=== PATIENT | female | born 1970 | race Caucasian/White ===

== ENCOUNTER → 2016-12-22 | Outpatient (CLI) | payer MEDICARE, OTHER ==
--- NOTE | 2016-12-22 09:25 | CT ---
EXAMINATION TYPE: CT brain wo con DATE OF EXAM: 12/22/2016 8:39 AM COMPARISON: NONE HISTORY: 46-year-old female with left temporal headache for 3 weeks. TECHNIQUE: Examination was done in axial plane without intravenous contrast. Coronal and sagittal reconstructio ns performed. CT DLP: 1061 mGycm Automated exposure control for dose reduction was used. FINDINGS: There is no evidence of acute intracranial hemorrhage, acute ischemic changes, mass, mass-effect, or extra-axial fluid collection. There is no effacement of cerebral sulci or basal subarachnoid cister ns. There is no hydrocephalus. There is no midline shift. Marquez-white matter distinction is preserv ed. The patient's gaze is minimally divergent. Paranasal sinuses and mastoid air cells are well pneumatiz ed. IMPRESSION: 1. No acute intracranial abnormality seen. 2. Slightly divergent gaze. Correlate for a subtle underlying strabismus.
--- NOTE | 2016-12-22 10:51 | USB ---
Reason for exam: clinical finding. Indicated problem(s): pain in both breasts. Physical Findings: Nurse Summary: Patient complains of intermittent breast pain x 1 year (nurse mm). US Breast BILAT Right breast ultrasound including all four quadrants, the retroareolar region and axilla demonstrates a 0.4 x 0.4 x 0.5cm oval, cystic lesion at 1 o'clock and a 0.4 x 0.3 x 0.3cm oval, cystic cluster at 7 o'clock. Left breast ultrasound including all four quadrants, the retroareolar region and axilla demonstrates a 0.5 x 0.3 x 0.4cm oval, cystic lesion at 1 o'clock and a 0.4 x 0.3 x 0.4cm oval, cystic lesion at 1 o'clock. These results were verbally communicated with the patient and result sheet given to the patient on 12/22/16. ASSESSMENT: Incomplete: need additional imaging evaluation, BI-RAD 0 RECOMMENDATION: Follow-up diagnostic mammogram of both breasts.
--- NOTE | 2016-12-22 10:53 | MM ---
Reason for exam: clinical finding. Baseline mammogram. Indicated problem(s): pain in both breasts. MG 3D Diag Mammo W/Cad NADINE Bilateral CC and MLO view(s) were taken. The breast tissue is heterogeneously dense. This may lower the sensitivity of mammography. No significant new findings when compared with previous films. These results were verbally communicated with the patient and result sheet given to the patient on 12/22/16. ASSESSMENT: Benign, BI-RAD 2 RECOMMENDATION: Routine screening mammogram of both breasts in 1 year.
== END | disposition home or self-care (01) ==
LOC: RADCTMAIN 08:21
PROVIDERS: ATTEND Family Medicine
DX: R92.8 Other abnormal and inconclusive findings on diagnostic imaging of breast (principal); R51 Headache; N64.4 Mastodynia
CPT/HCPCS: 76641; 70450; G0204; G0279

== ENCOUNTER → 2017-01-29 | Outpatient (CLI) | payer MEDICARE, OTHER ==
--- NOTE | 2017-01-29 12:10 | XR ---
EXAMINATION TYPE: XR shoulder complete LT DATE OF EXAM: 01/29/2017 12:01 PM CLINICAL HISTORY: pain COMPARISON: NONE TECHNIQUE: Three views of the left shoulder are obtained. FINDINGS: There is no acute fracture/dislocation evident. The acromioclavicular and glenohumeral xander int spaces appear within normal limits. The visualized ribs are intact and unremarkable. IMPRESSION: 1. There is no acute fracture or dislocation. ICD 10 NO FRACTURE, INITIAL EVALUATION
--- NOTE | 2017-01-29 12:11 | XR ---
EXAMINATION TYPE: XR cervical spine comp DATE OF EXAM: 01/29/2017 12:01 PM CLINICAL HISTORY: pain COMPARISON: NONE TECHNIQUE: Frontal, lateral, oblique, swimmers, and open mouth view of the cervical spine are obtaine d. FINDINGS: The cervical spine is visualized in its entirety from C1 thru the top of T1 level. It is s atisfactory in alignment without evidence of acute fracture or dislocation. The pre-vertebral soft t issue appears within normal limits. Mild degenerative narrowing at C6-7. The C1-C2 articulation is un remarkable on the open mouth view. The oblique images are within normal limits. IMPRESSION: No acute fracture or dislocation is seen in the cervical spine.ICD 10 NO FRACTURE, INITI AL EVALUATION
--- NOTE | 2017-01-29 12:12 | XR ---
EXAMINATION TYPE: XR lumbosacral spine min 4V DATE OF EXAM: 01/29/2017 12:01 PM CLINICAL HISTORY: pain COMPARISON: NONE TECHNIQUE: Frontal, lateral, and oblique images of the lumbar spine are obtained. FINDINGS: There are 5 lumbar type vertebral bodies identified. The lumbar spine shows satisfactory alignment without evidence of acute fracture or dislocation. Vertebral body heights are within normal limits. Mild lower lumbar degenerative narrowing and spondylosis. Mild facet joint arthropathy. Th e overlying soft tissue appears unremarkable. IMPRESSION: No acute fracture or dislocation is seen in the lumbar spine.ICD 10 NO FRACTURE, INITIAL EVALUATION
--- NOTE | 2017-01-29 12:13 | XR ---
EXAMINATION TYPE: XR AC joint BILAT DATE OF EXAM: 01/29/2017 12:01 PM COMPARISON: NONE HISTORY: Shoulder pain TECHNIQUE: Evaluation of the AC joints bilaterally was performed with and without weights. FINDINGS: AC joints are intact and demonstrate stability with and without weights. No significant deg enerative narrowing. No bony lesion or fracture. IMPRESSION: Negative evaluation of the AC joints
== END | disposition home or self-care (01) ==
LOC: RADXRMAIN 11:02
PROVIDERS: ATTEND Family Medicine
DX: M54.2 Cervicalgia (principal); M54.5 Low back pain; M25.512 Pain in left shoulder
CPT/HCPCS: 72050; 72110; 73050; 85379

== ENCOUNTER → 2017-06-15 | Outpatient (CLI) | payer BC, MEDICARE ==
--- NOTE | 2017-06-15 14:01 | NM ---
EXAMINATION TYPE: NM bone scan whole body DATE OF EXAM: 06/15/2017 COMPARISON: NONE HISTORY: Low back pain Delayed whole-body scanning was performed following the injection of 25.9 mCi Tc 99m MDP. Images acq uired 3 hours post injection. FINDINGS: There is some mild increased activity in the left forefoot as well as in the region of the medial malleolus on the right. There is some increased activity in the right maxilla. No abnormal act ivity is seen within the spine. SPECT imaging is unremarkable. IMPRESSION: NO ABNORMAL SPINE ACTIVITY TO ACCOUNT FOR PATIENT'S PAIN.
== END | disposition home or self-care (01) ==
LOC: RADNMMAIN 10:10
PROVIDERS: ATTEND Internal Medicine Rheumatology
DX: M54.2 Cervicalgia (principal); M54.5 Low back pain; G89.29 Other chronic pain
CPT/HCPCS: 78306; 78320; A9503

== ENCOUNTER → 2018-03-01 | Outpatient (CLI) | payer BC, MEDICARE | END | disposition home or self-care (01) | LOC: RADUSWWP 14:07 | PROVIDERS: ATTEND Family Medicine | DX: I73.9 Peripheral vascular disease, unspecified (principal) | CPT/HCPCS: 93922 ==

== ENCOUNTER → 2018-06-13 | Outpatient (CLI) | payer BC, MEDICARE ==
--- NOTE | 2018-06-13 17:09 | XR ---
EXAMINATION TYPE: XR foot complete LT DATE OF EXAM: 06/13/2018 COMPARISON: NONE HISTORY: Left foot pain TECHNIQUE: 3 views FINDINGS: Metatarsals appear intact. I see no fracture nor dislocation. Joint spaces are fairly barbara l. There are no erosions. IMPRESSION: Negative exam. No evidence of inflammatory arthritis.
== END | disposition home or self-care (01) ==
LOC: RADXRMAIN 16:31
PROVIDERS: ATTEND Family Medicine
DX: M79.672 Pain in left foot (principal)

== ENCOUNTER → 2018-06-24 | Outpatient (CLI) | payer BC, MEDICARE ==
--- NOTE | 2018-06-24 23:58 | MR ---
EXAMINATION TYPE: MR cervical spine wo con DATE OF EXAM: 06/24/2018 COMPARISON: None HISTORY: Neck pain / bilateral arm pain x6 months TECHNIQUE: Multiplanar, multisequence images of the cervical spine were acquired. Cervical vertebra have normal alignment. The disc spaces are slightly narrowed at C5-6 C6-7. There ar e small posterior disc bulges at C5-6 C6-7 without significant impingement on the cervical spinal cor d. There is developmentally adequate canal. The canal measures 8 mm at C5-6. The brainstem is intact. Cervical spinal cord has normal signal pattern. There is no edema. There is no compression fracture. There are small posterior disc bulge also at C3-4. There is no paraspinal mass. I see no focal bone destruction. IMPRESSION: Mild spondylotic changes. Multiple levels of small posterior disc bulge and herniation. No significan t spinal stenosis. No fracture.
--- NOTE | 2018-06-25 00:02 | MR ---
EXAMINATION TYPE: MR lumbar spine wo/w con DATE OF EXAM: 06/24/2018 COMPARISON: HISTORY: Low back and leg pain, previous surgery, gadavist 7.5 TECHNIQUE: Multiplanar, multisequence images of the lumbar spine were acquired utilizing 7.5 mL intravenous Gada vist gadolinium contrast. The lumbar vertebra have normal alignment. Disc spaces are fairly normal. There is no compression fra cture. Lumbar nerve roots appear normal. There is a small posterior central and left side lumbar disc herniation at L2-3 and L3-4. There is slight impingement on the left-sided neural foramina at L2-3 L 3-4. I see no bony destructive process. There is no paraspinal mass. The posterior elements are intac t. IMPRESSION: Small lateral left side disc herniation at L2-3 and L3-4 with only minimal impingement on the neural foramen. No fracture. No spinal stenosis.
== END | disposition home or self-care (01) ==
LOC: RADMRIMAIN 15:45
PROVIDERS: ATTEND Family Medicine
DX: M50.11 Cervical disc disorder with radiculopathy, high cervical region (principal); M51.26 Other intervertebral disc displacement, lumbar region; M47.22 Other spondylosis with radiculopathy, cervical region
CPT/HCPCS: 82565; 72141; 72158; A9581

== ENCOUNTER → 2018-07-12 | Outpatient (CLI) | payer BC, MEDICARE ==
--- NOTE | 2018-07-12 16:12 | MR ---
EXAMINATION TYPE: MR thoracic spine wo con DATE OF EXAM: 07/12/2018 COMPARISON: 02/05/2016 HISTORY: Mid back pain x 2 months, previous MRI on PACS 01/2016 Standard multiplanar, multisequence MRI departmental protocol Multiplanar, multisequence images of the thoracic spine were acquired. Diffusion weighted imaging was performed. FINDINGS: On the localizer images there are multilevel at least disc bulges within the cervical spine at C3-C4, C4-C5, C5-C6 and C6-C7. These are incompletely evaluated and cervical spine MRI could be performed f or further evaluation. The thoracic vertebral bodies maintain normal vertebral body heights and alignment. There is no suspi cious extra-axial fluid collection seen. Thoracic spinal cord also maintains normal signal throughout . Bone marrow signal is within normal limits. There is no evidence of spinal canal stenosis or neural foraminal narrowing at any thoracic vertebral level. No suspicious osseous lesions are seen. Paraspinal muscles are symmetric and within normal li mits of signal. No significant atrophy. There is no evidence of focal disc herniation at any thoracic vertebral level. IMPRESSION: 1. Unchanged from the prior exam of 02/05/2016 there is no evidence of focal disc herniation, spinal ca nal stenosis or neural foraminal narrowing at any thoracic vertebral level. No abnormal bone marrow s ignal or vertebral body height loss. No malalignment. 2. Multilevel degenerative disc disease in the cervical spine as seen on the localizer images only.
== END | disposition home or self-care (01) ==
LOC: RADMRIMAIN 15:12
PROVIDERS: ATTEND Family Medicine
DX: M51.36 Other intervertebral disc degeneration, lumbar region (principal); R20.2 Paresthesia of skin
CPT/HCPCS: 72146

== ENCOUNTER → 2019-01-04 | Outpatient (CLI) | payer BC, MEDICARE ==
--- NOTE | 2019-01-04 09:44 | MM ---
Reason for exam: additional evaluation requested from prior study. Last mammogram was performed 2 years ago. History: Family history of breast cancer in sister at age 45. Physical Findings: Nurse did not find any significant physical abnormalities on exam. MG 3D Diag Mammo W/Cad NADINE Bilateral CC and MLO view(s) were taken. Prior study comparison: December 22, 2016, bilateral MG 3d diag mammo w/cad NADINE. The breast tissue is heterogeneously dense. This may lower the sensitivity of mammography. There is no discrete abnormality including area of concern. No significant new findings when compared with previous films. These results were verbally communicated with the patient and result sheet given to the patient on 01/04/19. ASSESSMENT: Incomplete: need additional imaging evaluation, BI-RAD 0 RECOMMENDATION: Ultrasound of the right breast.
--- NOTE | 2019-01-04 09:45 | USB ---
Reason for exam: additional evaluation requested from abnormal screening. History: Family history of breast cancer in sister at age 45. US Breast Axilla RT Right limited breast ultrasound including focal area of concern, retroareolar and axilla demonstrates a 0.5 x 0.3 x 0.5cm mixed lesion at the posterior nipple. These results were verbally communicated with the patient and result sheet given to the patient on 01/04/19. ASSESSMENT: Probably benign, BI-RAD 3 RECOMMENDATION: Ultrasound of the right breast in 6 months. Manage patient on a clinical basis.
== END | disposition home or self-care (01) ==
LOC: RADMAMWWP 08:43
PROVIDERS: ATTEND Family Medicine
DX: R92.8 Other abnormal and inconclusive findings on diagnostic imaging of breast (principal); R59.0 Localized enlarged lymph nodes
CPT/HCPCS: 77062; 77066

== ENCOUNTER → 2019-07-05 | Outpatient (CLI) | payer MEDICARE ==
--- NOTE | 2019-07-06 07:00 | XR ---
EXAMINATION TYPE: XR lumbosacral spine min 4V DATE OF EXAM: 07/05/2019 CLINICAL HISTORY: Low back pain. MRI lumbar spine June 24, 2018 lumbar spine x-ray January 29, 2017. TECHNIQUE: Frontal, lateral, and oblique images of the lumbar spine are obtained. COMPARISON: None FINDINGS: There are 5 lumbar type vertebral bodies redemonstrated. The lumbar spine shows persisten t grade 1 retrolisthesis L4 on L5. Vertebral body heights remain within normal limits. Mild disc spa ce narrowing L3-L4 level is redemonstrated. Interval laminectomy defects with spinous process resecti on involving L3-L5 vertebra. Facet arthropathy lower lumbar levels is redemonstrated. The oblique asia ges appear within normal limits. Vascular calcification overlying abdominal aorta is again seen exten ding into the iliac branch vessels. IMPRESSION: As above.
--- NOTE | 2019-07-06 07:01 | XR ---
EXAMINATION TYPE: XR Hip Bilateral Complete DATE OF EXAM: 07/05/2019 CLINICAL HISTORY: Bilateral hip pain TECHNIQUE: AP and frogleg views of the bilateral hips are obtained. COMPARISON: None. FINDINGS: There is no acute fracture/dislocation evident in either hip. The joint space in the bila teral hips appears within normal limits. No suspicious focal osseous lesions. No significant spurring . Some scattered pelvic phleboliths are noted bilaterally. IMPRESSION: Unremarkable study.
== END | disposition home or self-care (01) ==
LOC: RADXRMAIN 16:43
PROVIDERS: ATTEND Family Medicine
DX: M48.061 Spinal stenosis, lumbar region without neurogenic claudication (principal); M46.96 Unspecified inflammatory spondylopathy, lumbar region; I70.8 Atherosclerosis of other arteries
CPT/HCPCS: 72110; 73521

== ENCOUNTER → 2019-09-06 | Outpatient (CLI) | payer MEDICARE ==
--- NOTE | 2019-09-06 15:19 | MR ---
EXAMINATION TYPE: MR neck wo/w con DATE OF EXAM: 09/06/2019 COMPARISON: None HISTORY: Hypothyroidism / Enlarged thyroid, lump in throat x 3 months CONTRAST: Standard multiplanar, multisequence MRI departmental protocol of the neck prior to and after the admi nistration of 9 mL intravenous Gadavist gadolinium contrast. FINDINGS: Postsurgical changes are seen from anterior cervical fusion at C5, C6, and C7. This creates susceptibility artifact limiting evaluation of the adjacent stranding structures. Disc desiccation i s seen of the remainder of the cervical spine with small right paracentral disc herniation at C3-C4 s lightly narrowing the ventral subarachnoid space and right neuroforamen. No current significant spina l canal stenosis. There is slight heterogeneity of the thyroid gland and mild enlargement as the thyroid gland measures 1.9 cm in anterior posterior dimension on the right and 1.8 cm in anterior posterior dimension on th e left. Thyroid gland measures 4.7 cm in craniocaudal dimension on the right and 4.1 cm in craniocaud al dimension on the left (dimensions are slightly enlarged). Thyroid isthmus measures 5 mm. There is some artifact throughout the thyroid gland from the adjacent cervical fusion device. No suspicious en hancing masses seen in the thyroid. True and false focal cords appear overall unremarkable. Vallecula also appears unremarkable. Piriform sinuses are not well visualized. Mild tonsillar hypertrophy is symmetric bilaterally. Fossa of [place] miller are unremarkable. 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 This is markedly T2 hyperintense and T2 weighted fat sat axia l image 34. Minimal atelectasis is seen in the lung apices. Suboptimal evaluation for pulmonary nodule on MRI. No adenopathy is seen within the visualized neck. Major vascular flow voids of the neck are maintained. Submandibular glands and parotid glands are symmetric and unremarkable. IMPRESSION: 1. Mildly enlarged and heterogenous thyroid gland is in keeping with this patient's history of hypoth yroidism. No suspicious masses seen on MRI. Slight artifact is seen through the thyroid from the cristian cent anterior cervical fusion device posterior to the thyroid gland. Resolution is best on thyroid ul trasound for evaluation of thyroid nodules. 2. 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 Given the slight peripheral enhancement (likely r elated to an inflammatory component). Direct visualization is recommended. 3. No abnormal adenopathy in the neck. 4. Small right paracentral disc herniation at C3-C4 without significant spinal canal stenosis at this time.
== END | disposition home or self-care (01) ==
LOC: RADMRIMAIN 12:36
PROVIDERS: ATTEND Family Medicine
DX: E03.9 Hypothyroidism, unspecified (principal); E04.1 Nontoxic single thyroid nodule; M50.21 Other cervical disc displacement, high cervical region; Z98.1 Arthrodesis status
CPT/HCPCS: 70543; A9585

== ENCOUNTER → 2020-05-22 | Outpatient (CLI) | payer BC, MEDICARE ==
--- NOTE | 2020-05-22 17:00 | MR ---
EXAMINATION TYPE: MR lumbar spine wo/w con DATE OF EXAM: 05/22/2020 COMPARISON: 06/24/2018 HISTORY: 50-year-old female Lumbar radiculopathy Technique: Multiplanar, multisequence images of the lumbar spine were obtained before and after admin istration of 9.5 mL intravenous Gadavist gadolinium contrast. FINDINGS: Vertebral body heights are preserved. There is grade 1 retrolisthesis at L4-L5 is unchanged. Hypertrophic facet arthropathy lower lumbar spine. Interval laminectomy at L4-L5 levels with dorsal decompression of the spinal canal. Mild degenerative disc disease throughout with mild disc desiccation. Variable mild disc height loss especially at L2-L3 and L3-L4. New enhancing annular fissures at both L2-L3 and L3-L4. Component of mild congenital spinal canal stenosis in the upper lumbar spine with AP canal dimension of 1.1 cm. No suspicious bone marrow replacement. Conus medullaris is normal. No prevertebral or paravertebral soft tissue abnormality seen. At T12-L1, no canal or foraminal stenosis. At L1-L2, no significant canal or foraminal stenosis. At L2-L3, mild bulging disc with posterior annular fissure. There is mild bilateral neuroforaminal st enosis demonstrated. Mild congenital canal narrowing is slightly accentuated by the bulging disc. No significant spinal canal stenosis. At L3-L4, bulging disc with enhancing annular fissure. Hypertrophic facet arthropathy. Dorsal decompr ession of the spinal canal at this level. Mild bilateral neural foraminal stenosis. At L4-L5, hypertrophic facet arthropathy with trace grade 1 retrolisthesis. Changes result in moderat e to severe right and moderate left neuroforaminal stenosis. Dorsal decompression of the spinal canal at this level. At L5-S1, hypertrophic facet arthropathy. No significant canal or foraminal stenosis. No abnormal enhancement seen within the spinal canal. IMPRESSION: 1. Mild congenital spinal canal narrowing but with interval laminectomies and dorsal decompression of the spinal canal from L3 through L5 levels. 2. Mild degenerative disc disease with development of new enhancing posterior annular fissures at L2- L3 and L3-L4. Slight accentuation of the mild congenital spinal canal narrowing at L2-L3 from disc bu lge. No significant spinal canal stenosis seen. 3. Hypertrophic facet arthropathy mid to lower lumbar spine. Unchanged trace grade 1 retrolisthesis a t L4-L5. 4. Changes contribute to moderate to severe right and moderate left neuroforaminal stenosis at L4-L5. Similar mild bilateral neuroforaminal narrowing at L2-L3 and L3-L4.
== END | disposition home or self-care (01) ==
LOC: RADMRIMAIN 13:39
PROVIDERS: ATTEND Family Medicine
DX: M48.061 Spinal stenosis, lumbar region without neurogenic claudication (principal); M51.16 Intervertebral disc disorders with radiculopathy, lumbar region; M47.26 Other spondylosis with radiculopathy, lumbar region; Q05.7 Lumbar spina bifida without hydrocephalus; Z98.890 Other specified postprocedural states
CPT/HCPCS: 72158; A9585

== ENCOUNTER → 2020-07-01 | Outpatient (CLI) | payer BC, MEDICARE ==
--- NOTE | 2020-07-02 06:10 | MR ---
EXAMINATION TYPE: MR thoracic spine wo con DATE OF EXAM: 07/01/2020 COMPARISON: Prior MRI thoracic spine July 12, 2018. HISTORY: Neck pain, Matteo arm numbness TECHNIQUE: Multiplanar, multisequence imaging of thoracic spine is performed without contrast FINDINGS: There is new artifact from anterior fusion hardware C5-C7 levels on the sagittal T2 countin g series . Spinal cord redemonstrates normal course, caliber, and signal as it courses the thoracic spine. Vertebral body heights and alignment remain satisfactory. Bone marrow signal intensity is pr eserved. Mild multilevel anterior spurring mid to lower thoracic spine redemonstrated. Disc space hei ghts are maintained. No new suspicious disc herniation seen on sagittal images. Review of the axial images shows no significant new spinal canal stenosis or neural foraminal narrowi ng at any thoracic level. Artifact from anterior surgical hardware now present at C7-T1 level. Carlin bon muscle bulk is maintained. No suspicious new incidental finding in the visualized thorax or upp er abdomen. IMPRESSION: No significant change from prior MRI. No new focal disc herniation, spinal canal stenosi s, or new significant neural foraminal narrowing at any thoracic vertebral body level.
--- NOTE | 2020-07-02 06:15 | MR ---
MRI CERVICAL SPINE: CLINICAL HISTORY: Neck pain. Bilateral arm numbness. TECHNIQUE: Multiplanar, multisequence imaging of the cervical spine is performed without and with IV contrast, 9.5 cc of gadolinium was given intravenously. COMPARISON: MRI cervical spine June 24, 2018. FINDINGS: Sagittal images of the cervical spine show the craniocervical junction to remaining within normal limits. The cervical and upper thoracic spinal cord remains normal in course, caliber, and si gnal. New artifact from artificial disc material and anterior fusion plate C5-C7 levels. Satisfactory alignment noted. The vertebral body and intravertebral disk heights are normal above and below the s urgical levels. The bone marrow signal intensity is within normal limits. No suspicious postcontrast enhancement is seen. Axial images show the C2-C3 level to remain within normal limits. Axial images at C3-C4 level redemonstrated broad-based posterior disc protrusion mildly effacing ante rior thecal sac and causing mild asymmetric left-sided neural foraminal narrowing. No significant bk nge or progression from prior. Axial images at C4-C5 level shows mild broad-based posterior disc protrusion and uncovertebral facet degenerative changes bilaterally. Mild effacement of the anterior thecal sac with mild bilateral neur al foraminal narrowing. Findings more prominent or new from prior. Axial images at C5-C6 levels artifact from surgical change with uncovertebral facet degenerative dykes ges causing moderate bilateral neural foraminal narrowing similar to prior. Axial images at C6-C7 level show artifact from surgical change with perhaps mild to moderate bilatera l neural foraminal narrowing. Axial images at C7-T1 level show artifact from surgical change otherwise are felt within normal limit s. IMPRESSION: Interval surgery C5-C7 levels with satisfactory alignment. Stable degenerative changes C3 -C4 level. New or more prominent degenerative changes C4-C5 level.
== END | disposition home or self-care (01) ==
LOC: RADMRIMAIN 15:00
PROVIDERS: ATTEND Family Medicine
DX: M47.892 Other spondylosis, cervical region (principal); M54.16 Radiculopathy, lumbar region
CPT/HCPCS: 72146; 72156; A9585

== ENCOUNTER → 2020-10-02 | Outpatient (CLI) | payer BC, MEDICARE ==
[2020-10-03 03:58] LABS: T4, Free (Free Thyroxine) 1.1 ng/dL (0.80-1.80)
== END | disposition home or self-care (01) ==
LOC: LABWHC1 13:55
PROVIDERS: ATTEND Internal Medicine Endocrinology, Diabetes & Metabolism
DX: E04.2 Nontoxic multinodular goiter (principal)
CPT/HCPCS: 36415; 84439; 84443

== ENCOUNTER → 2020-10-14 | Outpatient (CLI) | payer BC, MEDICARE ==
--- NOTE | 2020-10-14 15:50 | US ---
EXAMINATION TYPE: US thyroid st tissue head/neck DATE OF EXAM: 10/14/2020 COMPARISON: 02/19/2012 CLINICAL HISTORY: E04.2 NONTOXIC MULTINODULAR GOITER. GLAND SIZE: Right Lobe: 5.0 x 1.6 x 1.8 cm Overall Parenchyma: heterogenous Left Lobe: 3.7 x 1.0 x 1.2 cm Overall Parenchyma: heterogeneous Isthmus Thickness: 0.3 cm NODULES RIGHT: # of nodules measured on right: 0 LEFT: # of nodules measured on left: 0 ISTHMUS: # of nodules measured in the isthmus: 0 Inferior to the left thyroid, there is a prominent hyperechoic area visualized measuring 0.5 x 0.5 x 0.8 cm of unknown etiology. IMPRESSION: Thyromegaly correlate for thyroiditis. Nonspecific hypoechoic nodule measuring 8 mm inferior left thy roid could represent a small lymph node or a parathyroid gland. Correlate with CT soft tissue of the neck as clinically warranted.
== END | disposition home or self-care (01) ==
LOC: RADUSWWP 14:46
PROVIDERS: ATTEND Internal Medicine Endocrinology, Diabetes & Metabolism
DX: E01.0 Iodine-deficiency related diffuse (endemic) goiter (principal)
CPT/HCPCS: 76536

== ENCOUNTER → 2020-10-18 | Outpatient (CLI) | payer BC, MEDICARE ==
[2020-10-19 00:03] LABS: African American GFR (CKD) 117.1 (60.0-200.0); Albumin 4.6 g/dL (3.80-4.90); Albumin/Globulin Ratio 2.09 (1.60-3.17); Anion Gap 8.5 mmol/L (4.00-12.00); BUN/Creat Ratio 22.86 Ratio (12.00-20.00); Calcium 9.8 mg/dL (8.7-10.3); Carbon Dioxide 28.5 mmol/L (21.6-31.8); Globulin 2.2 g/dL (1.6-3.3); Total Bilirubin 0.3 mg/dL (0.2-1.2); Total Protein 6.8 g/dL (6.2-8.2)
== END | disposition home or self-care (01) ==
LOC: LABWHC1 15:45
PROVIDERS: ATTEND Internal Medicine Endocrinology, Diabetes & Metabolism
DX: D35.1 Benign neoplasm of parathyroid gland (principal); E55.9 Vitamin D deficiency, unspecified
CPT/HCPCS: 36415; 80053; 82306; 83970

== ENCOUNTER → 2020-10-22 | Day surgery (SDC) | payer BC, MEDICARE ==
[2020-10-21 08:30] VITALS: BMI 34.9
[~2020-10-22] MED LIST: LACTATED RINGERS 1,000 ML IV SCH; LIDOCAINE 1% (10MG/ML) FOR IV START INTRADERMA PRN; PROPOFOL 10 MG/ML 20 ML VIAL IV ONE
[2020-10-22 08:22] VITALS: RESP 18; TEMP 96.9
--- NOTE | 2020-10-22 08:36 | P.GSHP ---
History of Present Illness H&P Date: 10/22/20 Chief Complaint: Rectal bleeding 50-year-old female here today with complaints of symptomatic hemorrhoids. States she had a flareup of her hemorrhoids after starting methotrexate. Symptoms have since resolved. During her episode some rectal bleeding noted. Family history of colon cancer in a grandfather. Past Medical History Past Medical History: Fibromyalgia, Osteoarthritis (OA), Pneumonia, Rheumatoid Arthritis (RA), Thyroid Disorder Additional Past Medical History / Comment(s): NEUROPATHY LEGS, TACHYCARDIA, BACK PAIN, CONSTIPATION. History of Any Multi-Drug Resistant Organisms: None Reported Past Surgical History: Back Surgery, Hernia Repair, Orthopedic Surgery, Tubal Ligation, Uterine Ablation Additional Past Surgical History / Comment(s): BILATERAL KNEE ARTHROSCOPIC SX, UMBILICAL HERNIA REPAIR, LAMINECTOMY X2, REMOVED OVARIAN CYSTS ghazal. left shoulder x2 2017, laminectomy lumber region 2018, cervical fusion 2019 Past Anesthesia/Blood Transfusion Reactions: Family History of Problems w/ Anesthesia, Motion Sickness Additional Past Anesthesia/Blood Transfusion Reaction / Comment(s): MOTHER HAD DIFFICULTY WAKING UP. VERTIGO WHEN LOOKING AT LIGHTS AFTER SURGERY. Past Psychological History: Depression Smoking Status: Former smoker Past Alcohol Use History: Rare Additional Past Alcohol Use History / Comment(s): quit smoking Oct- started smoking at age 16 Past Drug Use History: None Reported - Past Family History Sister(s) Family Medical History: Cancer Additional Family Medical History / Comment(s): breast cancer and melanoma Medications and Allergies Home Medications Medication Instructions Recorded Confirmed Type Nebivolol [Bystolic] 5 mg PO HS 09/27/19 10/22/20 History Acetaminophen Tab [Tylenol] 650 mg PO DIRECTED PRN 10/21/20 10/22/20 History Cyclobenzaprine [Flexeril] 10 mg PO DIRECTED PRN 10/21/20 10/22/20 History Etanercept [Enbrel] 50 mg SQ Q7DAYS 10/21/20 10/22/20 History Ibuprofen [Motrin Ib] 400 mg PO DIRECTED PRN 10/21/20 10/22/20 History Allergies Allergy/AdvReac Type Severity Reaction Status Date / Time latex Allergy Severe Swelling Verified 10/22/20 08:22 Sulfa (Sulfonamide Allergy Rash/Hives Verified 10/22/20 08:22 Antibiotics) Surgical - Exam Vital Signs Temp Pulse Resp BP Pulse Ox 96.9 F L 106 H 18 142/86 95 10/22/20 08:20 10/22/20 08:20 10/22/20 08:20 10/22/20 08:20 10/22/20 08:20 Physical exam: General: Well-developed, well-nourished HEENT: Normocephalic, sclerae nonicteric Abdomen: Nontender, nondistended Extremities: No edema Neuro: Alert and oriented Assessment and Plan (1) Rectal bleeding Narrative/Plan: Will proceed with colonoscopy Current Visit: Yes Status: Acute Code(s): K62.5 - HEMORRHAGE OF ANUS AND RECTUM SNOMED Code(s): 21548865
--- NOTE | 2020-10-22 08:49 | P.PCN ---
Date of Procedure: 10/22/20 Procedure(s) Performed: PREOPERATIVE DIAGNOSIS: Rectal bleeding POSTOPERATIVE DIAGNOSIS: Small rectal polyps, small external hemorrhoid PROCEDURE: Colonoscopy with biopsy ANESTHESIA: MAC SURGEON: Buster Elias M.D. SPECIMENS: Rectal polyps ENDOSCOPIC PROCEDURE: The patient was placed on the endoscopy table in the left decubitus position. The Olympus colonoscope was inserted into the anus and passed under direct visualization to the base of the cecum. The appendiceal orifice was visualized. From that point the scope was slowly withdrawn inspecting all surfaces carefully. There were no neoplastic inflammatory or polypoid lesions throughout the cecum, ascending, transverse, descending and sigmoid colon. In the rectum there were a few small polyps that appeared hyperplastic. 2 of these were removed using the cold biopsy forceps. Digital rectal examination was normal with the exception of a small external hemorrhoid. There was no visible diverticulosis. The patient was taken to the recovery room in stable condition per anesthesia guidelines. RECOMMENDATIONS: Await biopsy results. Anticipate follow-up colonoscopy 10 years.
[2020-10-22 09:11] VITALS: BP 125/91; PULSE 99
== END ==
LOC: ORWHC2ENDO 07:43
PROVIDERS: ATTEND Surgery
DX: K62.1 Rectal polyp (principal); K64.4 Residual hemorrhoidal skin tags; K62.5 Hemorrhage of anus and rectum; M79.7 Fibromyalgia; M19.90 Unspecified osteoarthritis, unspecified site; M06.9 Rheumatoid arthritis, unspecified; E07.9 Disorder of thyroid, unspecified; Z80.0 Family history of malignant neoplasm of digestive organs; G62.9 Polyneuropathy, unspecified; R00.0 Tachycardia, unspecified; K59.00 Constipation, unspecified; Z98.890 Other specified postprocedural states; Z98.51 Tubal ligation status; Z98.1 Arthrodesis status; F32.9 Major depressive disorder, single episode, unspecified; Z87.891 Personal history of nicotine dependence; Z80.3 Family history of malignant neoplasm of breast; Z80.8 Family history of malignant neoplasm of other organs or systems; Z79.1 Long term (current) use of non-steroidal anti-inflammatories (NSAID); Z79.899 Other long term (current) drug therapy; Z88.2 Allergy status to sulfonamides; Z91.040 Latex allergy status
CPT/HCPCS: 81025; 88305; 45380; J2704

== ENCOUNTER → 2020-11-05 | Outpatient (CLI) | payer BC, MEDICARE ==
--- NOTE | 2020-11-05 15:44 | CT ---
EXAMINATION TYPE: CT soft tissue neck wo con DATE OF EXAM: 11/05/2020 HISTORY: abnormal neck US COMPARISON: MRI neck September 06, 2019. Recent thyroid ultrasound October 14, 2020 CT DLP: 661.1 mGycm. Automated Exposure Control for Dose Reduction was Utilized. TECHNIQUE: CT scan of the neck is performed without IV contrast. FINDINGS: Lack of IV contrast noted to Limited evaluation for mucosal lesions and subcentimeter lymph nodes and masses. Airway: Thyroid gland is stable and within normal limits in size. There is no suspicious new mass see n inferior to the left thyroid lobe to correlate with recent ultrasound. No significant change from p rior MRI neck study noted. Parotid/submandibular glands: No gross abnormality seen. Carotid/Vascular Structures: Mild to moderate calcified plaque right greater than left carotid bulb n oted. Osseous Structures: Anterior fusion plate C5-C7 levels with stable alignment redemonstrated Other: A few scattered subcentimeter lymph nodes throughout the neck bilaterally. No definitive new a bnormal greater than 1 cm neck lymph nodes. IMPRESSION: No suspicious new mass or adenopathy.
== END | disposition home or self-care (01) ==
LOC: RADCTMAIN 15:18
PROVIDERS: ATTEND Family Medicine
DX: E04.2 Nontoxic multinodular goiter (principal)
CPT/HCPCS: 70490

== ENCOUNTER 2021-03-06 07:21 | Observation (INO) | payer BC, MEDICARE ==
[2021-03-06] MEDS ORDERED: PANTOPRAZOLE 40 MG/10 ML VIAL IVP STA (07:32)
[2021-03-06] MEDS ORDERED: ONDANSETRON 4 MG/2 ML VIAL IVP STA (07:32)
[2021-03-06] MEDS ORDERED: SODIUM CHLORIDE 0.9% 1,000 ML IV STA (07:32)
[2021-03-06 08:10] LABS: Basophils % (A) 1 %; Eosinophils # (A) 0.2 k/uL (0-0.7); Eosinophils % (A) 2 %; HCT 39.9 % (34.0-46.0); HGB 14.1 gm/dL (11.4-16.0); Lymphocytes # (A) 2.7 k/uL (1.0-4.8); Lymphocytes % (A) 37 %; MCH 30.1 pg (25.0-35.0); MCHC 35.4 g/dL (31.0-37.0); MCV 85.1 fL (80.0-100.0); Mean Platelet Volume 6.8; Monocytes # (A) 0.5 k/uL (0-1.0); Monocytes % (A) 7 %; Neutrophils # (A) 3.7 k/uL (1.3-7.7); Neutrophils % (A) 51 %; Platelet Count 263 k/uL (150-450); RBC 4.69 m/uL (3.80-5.40); RDW 12.1 % (11.5-15.5); WBC 7.3 k/uL (3.8-10.6)
[2021-03-06 08:21] LABS: Appearance,Urine Cloudy (Clear); Bilirubin,Urine Negative (Negative); Blood,Urine Negative (Negative); Color,Urine Yellow; Glucose,Urine (UA) Negative (Negative); Hyaline Casts,Urine 1 /lpf (0-2); Ketones,Urine Negative (Negative); Leukocyte Esterase,Urine Trace (Negative); Mucus,Urine Occasional /hpf; Nitrite,Urine Negative (Negative); PH, Urine 5.5 (5.0-8.0); Protein,Urine Trace (Negative); RBC,Urine <1 /hpf (0-5); Specific Gravity,Urine 1.025 (1.001-1.035); Squamous Epithelial Cell,Urine 28 /hpf (0-4); Urobilinogen,Urine <2.0 mg/dL (<2.0); WBC,Urine 1 /hpf (0-5)
[2021-03-06 08:25] LABS: ALT 34 U/L (4-34); AST 26 U/L (14-36); African American GFR (CKD) >90 (>60 ml/min/1.73 sqM); Albumin 4.2 g/dL (3.5-5.0); Alkaline Phosphatase 97 U/L (38-126); Anion Gap 6 mmol/L; Blood Urea Nitrogen 12 mg/dL (7-17); Calcium 9.3 mg/dL (8.4-10.2); Carbon Dioxide 27 mmol/L (22-30); Chloride 107 mmol/L (98-107); Glucose 119 mg/dL (74-99); Lipase 175 U/L (23-300); Non-African American GFR(CKD) >90 (>60 ml/min/1.73 sqM); Potassium 4.1 mmol/L (3.5-5.1); Sodium 140 mmol/L (137-145); Total Bilirubin 0.3 mg/dL (0.2-1.3); Total Protein 6.9 g/dL (6.3-8.2)
--- NOTE | 2021-03-06 08:45 | ED ---
Abdominal Pain HPI - General Chief Complaint: Abdominal Pain Stated Complaint: Abd Pain Time Seen by Provider: 03/06/21 07:32 Source: patient Mode of arrival: ambulatory Limitations: no limitations - History of Present Illness Initial Comments: 50-year-old female presents to emergency Department with a chief complaint of abdominal pain. States the pain started about 3 days ago in the suprapubic region and has migrated to the right lower quadrant. Patient reports feeling slightly nauseous but no vomiting. They report some nonbloody diarrhea. She reports pain is quite tender to touch. She reports previous abdominal surgery of tubal ligation and hernia repair. She denies any urinary or vaginal symptoms. Denies any chest pain or shortness of breath. Does report chills but no fevers at home. Last time she ate was 7 PM last night. - Related Data Home Medications Medication Instructions Recorded Confirmed Nebivolol [Bystolic] 5 mg PO HS 09/27/19 10/22/20 Acetaminophen Tab [Tylenol] 650 mg PO DIRECTED PRN 10/21/20 10/22/20 Cyclobenzaprine [Flexeril] 10 mg PO DIRECTED PRN 10/21/20 10/22/20 Etanercept [Enbrel] 50 mg SQ Q7DAYS 10/21/20 10/22/20 Ibuprofen [Motrin Ib] 400 mg PO DIRECTED PRN 10/21/20 10/22/20 Allergies Allergy/AdvReac Type Severity Reaction Status Date / Time latex Allergy Severe Swelling Verified 03/06/21 07:22 Sulfa (Sulfonamide Allergy Rash/Hives Verified 03/06/21 07:22 Antibiotics) Review of Systems ROS Statement: Those systems with pertinent positive or pertinent negative responses have been documented in the HPI. ROS Other: All systems not noted in ROS Statement are negative. Past Medical History Past Medical History: Osteoarthritis (OA), Pneumonia, Thyroid Disorder Additional Past Medical History / Comment(s): NEUROPATHY, tachycardia, glucoma History of Any Multi-Drug Resistant Organisms: None Reported Past Surgical History: Back Surgery, Hernia Repair, Orthopedic Surgery, Tubal Ligation, Uterine Ablation Additional Past Surgical History / Comment(s): BILATERAL KNEE ARTHROSCOPIC SX, UMBILICAL HERNIA REPAIR,LUMBAR LAMINECTOMY, REMOVED OVARIAN CYSTS ghazal. left shoulder x2 2017, laminectomy lumber region 2018, cervical fusion 2019 Past Anesthesia/Blood Transfusion Reactions: Family History of Problems w/ Anesthesia Additional Past Anesthesia/Blood Transfusion Reaction / Comment(s): MOTHER HAD DIFFICULTY WAKING UP. Past Psychological History: No Psychological Hx Reported Smoking Status: Former smoker Past Alcohol Use History: Rare Past Drug Use History: None Reported - Past Family History Sister(s) Family Medical History: Cancer Additional Family Medical History / Comment(s): breast cancer and melanoma General Exam Limitations: no limitations General appearance: alert, in no apparent distress, obese Head exam: Present: atraumatic, normocephalic, normal inspection Eye exam: Present: normal appearance, PERRL, EOMI Pupils: Present: normal accommodation ENT exam: Present: normal exam, normal oropharynx, mucous membranes moist Neck exam: Present: normal inspection, full ROM. Absent: tenderness Respiratory exam: Present: normal lung sounds bilaterally. Absent: respiratory distress Cardiovascular Exam: Present: regular rate, normal rhythm, normal heart sounds. Absent: systolic murmur, diastolic murmur GI/Abdominal exam: Present: soft, tenderness (McBurney point tenderness. Patient is quite tender to the right lower quadrant), guarding. Absent: distended Extremities exam: Present: normal inspection, full ROM, normal capillary refill. Absent: tenderness, pedal edema, joint swelling Back exam: Present: normal inspection, full ROM. Absent: tenderness, CVA tenderness (R), CVA tenderness (L) Neurological exam: Present: alert, oriented X3, normal gait Psychiatric exam: Present: normal affect, normal mood Skin exam: Present: warm, dry, intact, normal color Course Vital Signs 03/06/21 07:22 Temperature 97.9 F Pulse Rate 108 H Respiratory 18 Rate Blood Pressure 118/87 O2 Sat by Pulse 98 Oximetry Medical Decision Making - Medical Decision Making 50-year-old female presents emergency Department with a chief complaint of abdominal pain. On physical examination, McBurney point tenderness. CBC CMP UA unremarkable. Lactic acid within normal limits. Blood cultures pending. CT of the abdomen and pelvis reveals early acute appendicitis. Case discussed with Dr gage who will admit patient for medical management. Patient will be started on Zosyn. Case discussed with Dr. Gonsalves. - Lab Data Result diagrams: 03/06/21 07:56 03/06/21 07:56 Lab Results 03/06/21 03/06/21 03/06/21 Range/Units 07:56 07:56 07:56 WBC 7.3 (3.8-10.6) k/uL RBC 4.69 (3.80-5.40) m/uL Hgb 14.1 (11.4-16.0) gm/dL Hct 39.9 (34.0-46.0) % MCV 85.1 (80.0-100.0) fL MCH 30.1 (25.0-35.0) pg MCHC 35.4 (31.0-37.0) g/dL RDW 12.1 (11.5-15.5) % Plt Count 263 (150-450) k/uL MPV 6.8 Neutrophils % 51 % Lymphocytes % 37 % Monocytes % 7 % Eosinophils % 2 % Basophils % 1 % Neutrophils # 3.7 (1.3-7.7) k/uL Lymphocytes # 2.7 (1.0-4.8) k/uL Monocytes # 0.5 (0-1.0) k/uL Eosinophils # 0.2 (0-0.7) k/uL Basophils # 0.0 (0-0.2) k/uL Sodium 140 (137-145) mmol/L Potassium 4.1 (3.5-5.1) mmol/L Chloride 107 (98-107) mmol/L Carbon Dioxide 27 (22-30) mmol/L Anion Gap 6 mmol/L BUN 12 (7-17) mg/dL Creatinine 0.55 (0.52-1.04) mg/dL Est GFR (CKD-EPI)AfAm >90 (>60 ml/min/1.73 sqM) Est GFR (CKD-EPI)NonAf >90 (>60 ml/min/1.73 sqM) Glucose 119 H (74-99) mg/dL Plasma Lactic Acid Pasquale (0.7-2.0) mmol/L Calcium 9.3 (8.4-10.2) mg/dL Total Bilirubin 0.3 (0.2-1.3) mg/dL AST 26 (14-36) U/L ALT 34 (4-34) U/L Alkaline Phosphatase 97 (38-126) U/L Total Protein 6.9 (6.3-8.2) g/dL Albumin 4.2 (3.5-5.0) g/dL Lipase 175 (23-300) U/L Urine Color Yellow Urine Appearance Cloudy H (Clear) Urine pH 5.5 (5.0-8.0) Ur Specific [place] 1.025 (1.001-1.035) Urine Protein Trace H (Negative) Urine Glucose (UA) Negative (Negative) Urine Ketones Negative (Negative) Urine Blood Negative (Negative) Urine Nitrite Negative (Negative) Urine Bilirubin Negative (Negative) Urine Urobilinogen <2.0 (<2.0) mg/dL Ur Leukocyte Esterase Trace H (Negative) Urine RBC <1 (0-5) /hpf Urine WBC 1 (0-5) /hpf Ur Squamous Epith Cells 28 H (0-4) /hpf Hyaline Casts 1 (0-2) /lpf Urine Mucus Occasional H (None) /hpf 03/06/21 Range/Units 07:56 WBC (3.8-10.6) k/uL RBC (3.80-5.40) m/uL Hgb (11.4-16.0) gm/dL Hct (34.0-46.0) % MCV (80.0-100.0) fL MCH (25.0-35.0) pg MCHC (31.0-37.0) g/dL RDW (11.5-15.5) % Plt Count (150-450) k/uL MPV Neutrophils % % Lymphocytes % % Monocytes % % Eosinophils % % Basophils % % Neutrophils # (1.3-7.7) k/uL Lymphocytes # (1.0-4.8) k/uL Monocytes # (0-1.0) k/uL Eosinophils # (0-0.7) k/uL Basophils # (0-0.2) k/uL Sodium (137-145) mmol/L Potassium (3.5-5.1) mmol/L Chloride (98-107) mmol/L Carbon Dioxide (22-30) mmol/L Anion Gap mmol/L BUN (7-17) mg/dL Creatinine (0.52-1.04) mg/dL Est GFR (CKD-EPI)AfAm (>60 ml/min/1.73 sqM) Est GFR (CKD-EPI)NonAf (>60 ml/min/1.73 sqM) Glucose (74-99) mg/dL Plasma Lactic Acid Pasquale 1.2 (0.7-2.0) mmol/L Calcium (8.4-10.2) mg/dL Total Bilirubin (0.2-1.3) mg/dL AST (14-36) U/L ALT (4-34) U/L Alkaline Phosphatase (38-126) U/L Total Protein (6.3-8.2) g/dL Albumin (3.5-5.0) g/dL Lipase (23-300) U/L Urine Color Urine Appearance (Clear) Urine pH (5.0-8.0) Ur Specific [place] (1.001-1.035) Urine Protein (Negative) Urine Glucose (UA) (Negative) Urine Ketones (Negative) Urine Blood (Negative) Urine Nitrite (Negative) Urine Bilirubin (Negative) Urine Urobilinogen (<2.0) mg/dL Ur Leukocyte Esterase (Negative) Urine RBC (0-5) /hpf Urine WBC (0-5) /hpf Ur Squamous Epith Cells (0-4) /hpf Hyaline Casts (0-2) /lpf Urine Mucus (None) /hpf Disposition Clinical Impression: Acute appendicitis Disposition: ADMITTED IP TO THIS [facility] Condition: Good Is patient prescribed a controlled substance at d/c from ED?: No Referrals: Benjamin Darnell DO [Primary Care Provider] - 1-2 days Time of Disposition: 09:26
--- NOTE | 2021-03-06 09:03 | CT ---
EXAMINATION TYPE: CT abdomen pelvis w con DATE OF EXAM: 03/06/2021 COMPARISON: NONE HISTORY: 50-year-old female RLQ abdominal pain TECHNIQUE: Contiguous axial scanning of the abdomen and pelvis following administration of 100 ml Iso rafa 300 IV contrast. Delayed images through the kidneys and coronal/sagittal reconstructions perform ed. CT DLP: 1416.7 mGycm Automated exposure control for dose reduction was used. FINDINGS: Heart normal size without pericardial effusion. Prominent RCA coronary artery calcifications noted. L madelyn bases are clear without pleural effusion. Liver mildly enlarged at 18.8 cm with diffuse low-attenuation. No focal lesion is seen. Portal venous system is patent. No biliary ductal dilatation. Gallbladder, adrenal glands, kidneys, spleen, and pancreas appear within normal limits. Moderate atherosclerotic calcifications infrarenal abdominal aorta and common iliac arteries. No dilated small bowel, free fluid, or free air. A couple prominent but nonenlarged kane hepatis lym ph nodes measuring up to 7 mm. Otherwise, no mesenteric or retroperitoneal lymphadenopathy. Appendix is fluid-filled and mildly thickened up to 9 mm. Some periappendiceal fat stranding extends superiorly, refer to axial images 60 through 70. Mild stool burden. No pericolonic inflammatory hill e seen elsewhere. Tiny focus of air just deep to the skin surface along the left lower quadrant suggests subcutaneous i njections. Bladder nondistended. Uterus anteverted. Both ovaries are visualized. 1.9 cm dominant follicle or fun ctional cyst of the left ovary. Tiny pelvic fluid loops. No abnormal fluid collection in the pelvis o r pelvic lymphadenopathy. Bones: Mild degenerative change of the hips. Mild facet arthropathy lower lumbar spine. Laminectomy c hanges from L3 through L5 levels. Of note, there left-sided L3 pars defect. Trace grade 1 retrolisthe sis L2-L3 and L4-L5. Trace grade 1 anterolisthesis L3-L4. IMPRESSION: 1. EXAM POSITIVE FOR EARLY ACUTE APPENDICITIS. NO ABSCESS OR FREE AIR. 2. WIDE LAMINECTOMIES FROM L3 THROUGH L5 LEVELS. NOTE THAT THERE IS A LEFT-SIDED L3 PARS DEFECT. 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 3. 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
[2021-03-06] MEDS ORDERED: PIPERACILLIN-TAZOBACTAM 3.375 GM in SODIUM CHLORIDE 0.9% 100 ML IVPB STA (09:15)
[2021-03-06] MEDS ORDERED: MORPHINE SULFATE 4 MG/ML SYRINGE IV PRN (09:18)
[2021-03-06] MEDS ORDERED: NALOXONE 0.4 MG/ML 1 ML VIAL IV PRN ×2 (09:18→18:26)
[2021-03-06] MEDS: ONDANSETRON 4 MG/2 ML VIAL IVP PRN ×2 (10:00→19:34)
[2021-03-06] MEDS: HYDROmorphone 0.5 MG/0.5 ML SYRINGE IVP PRN (10:00)
[2021-03-06] MEDS: SODIUM CHLORIDE 0.9% 1,000 ML IV SCH (10:06)
--- NOTE | 2021-03-06 11:56 | P.GSHP ---
<Keyana Barker - Last Filed: 03/06/21 11:41> History of Present Illness H&P Date: 03/06/21 CHIEF COMPLAINT: Abdominal pain HISTORY OF PRESENT ILLNESS: This is a 50-year-old female with a known past medical history of hypothyroidism, tachycardia, rheumatoid arthritis, fibromyalgia and osteoarthritis. Past surgical history includes umbilical hernia repair, tubal ligation and removal of ovarian cysts bilaterally. She's also had a cervical fusion and laminectomy of the lumbar spine. Patient presents to the emergency room with complaints of abdominal pain. Patient states pain started 3 days ago on Wednesday around 1:00 in the morning. She states the pain was under her belly button and it was dull and achy. She also had nausea and one episode of diarrhea. Pain then radiated from the umbilicus down into the right lower quadrant. She was rating the pain about a 5 out of 10. The pain was persistent there. She came into the ER for further evaluation and treatment. Patient denies any fever, chills or sweats. Denies any vomiting. Denies any urinary symptoms. She had computed tomography scan of the abdomen and pelvis which is positive for early acute appendicitis. No abscess or free air. Patient admitted to the hospital for an acute appendicitis. Started on IV antibiotics. PAST MEDICAL HISTORY: See list. PAST SURGICAL HISTORY: See list. MEDICATIONS: See list. ALLERGIES: See list. SOCIAL HISTORY: No illicit drug use. REVIEW OF SYSTEMS: CONSTITUTIONAL: Denies fever or chills. HEENT: Denies blurred vision, vision changes, or eye pain. Denies hemoptysis CARDIOVASCULAR: Denies chest pain or pressure. RESPIRATORY: No shortness of breath. GASTROINTESTINAL: See HPI for pertinent findings HEMATOLOGIC: Denies bleeding disorders. GENITOURINARY: Denies any blood in urine or increased urinary frequency. SKIN: Denies pruitis. Denies rash. PHYSICAL EXAM: VITAL SIGNS: Reviewed GENERAL: Well-developed in no acute distress. HEENT: No sclera icterus. Extraocular movements grossly intact. Moist buccal mucosa. Head is atraumatic, normocephalic. No nasal drainage. ABDOMEN: Soft. Nondistended. Tenderness with palpation to right lower quadrant. NEUROLOGIC: Alert and oriented. Cranial nerves II through XII grossly intact. LABORATORY DATA: WBC 7.3 Hgb 14.1 platelets 263 sodium 140 potassium 4.1 BUN 12 creatinine 0.55 Lactic 1.5 LFTs and lipase normal IMAGING: Computed tomography scan of the abdomen and pelvis exam positive for early acute appendicitis. No abscess or free air. Wide laminectomies from L3 through L5 levels. Note that there is a left sided L3 pars defect. Trace grade 1 spondylolisthesis from L2 through L5 levels. Mild hepatomegaly with hepatic gerri atosis. ASSESSMENT: 1. Acute appendicitis 2. History of sinus tachycardia. Takes Bystolic at home 3. History of rheumatoid arthritis 4. History of umbilical hernia repair 5. History of removal of ovarian cysts bilaterally and tubal ligation PLAN: -Patient scheduled for laparoscopic appendectomy, possible open appendectomy today, 03/06/[address] Elias -Keep patient nothing by mouth -Continue IV fluids -Continue IV antibiotics -Continue Zofran as needed for nausea -Continue pain medication as needed Physician [place] Floor Layer note has been reviewed by physician. Signing provider agrees with the documented findings, assessment, and plan of care. Past Medical History Past Medical History: Osteoarthritis (OA), Pneumonia, Thyroid Disorder Additional Past Medical History / Comment(s): NEUROPATHY, tachycardia, glucoma History of Any Multi-Drug Resistant Organisms: None Reported Past Surgical History: Back Surgery, Hernia Repair, Orthopedic Surgery, Tubal Ligation, Uterine Ablation Additional Past Surgical History / Comment(s): BILATERAL KNEE ARTHROSCOPIC SX, UMBILICAL HERNIA REPAIR,LUMBAR LAMINECTOMY, REMOVED OVARIAN CYSTS ghazal. left shoulder x2 2017, laminectomy lumber region 2018, cervical fusion 2019 Past Anesthesia/Blood Transfusion Reactions: Family History of Problems w/ Anesthesia Additional Past Anesthesia/Blood Transfusion Reaction / Comment(s): MOTHER HAD DIFFICULTY WAKING UP. Past Psychological History: No Psychological Hx Reported Smoking Status: Former smoker Past Alcohol Use History: Rare Past Drug Use History: None Reported - Past Family History Sister(s) Family Medical History: Cancer Additional Family Medical History / Comment(s): breast cancer and melanoma Medications and Allergies Home Medications Medication Instructions Recorded Confirmed Type Nebivolol [Bystolic] 5 mg PO HS 09/27/19 03/06/21 History Etanercept [Enbrel] 50 mg SQ WE 10/21/20 03/06/21 History Ibuprofen [Motrin Ib] 400 - 800 mg PO Q6H PRN 10/21/20 03/06/21 History Amoxic-Pot Clav 875-125Mg 1 tab PO Q12HR 03/06/21 03/06/21 History [Augmentin 875-125] DULoxetine HCL [Cymbalta] 60 mg PO DAILY 03/06/21 03/06/21 History Ergocalciferol [Vitamin D2 (1250 1,250 mcg PO WE 03/06/21 03/06/21 History Mcg = 61634 Iu)] Phentermine HCl [Adipex-P] 37.5 mg PO DAILY 03/06/21 03/06/21 History Allergies Allergy/AdvReac Type Severity Reaction Status Date / Time latex Allergy Severe Swelling Verified 03/06/21 14:54 Sulfa (Sulfonamide Allergy Rash/Hives Verified 03/06/21 14:54 Antibiotics) Surgical - Exam Vital Signs Temp Pulse Resp BP Pulse Ox 97.9 F 108 H 18 118/87 98 03/06/21 07:22 03/06/21 07:22 03/06/21 07:22 03/06/21 07:22 03/06/21 07:22 Results - Labs 03/06/21 07:56 03/06/21 07:56 Abnormal Lab Results - Last 24 Hours (Table) 03/06/21 03/06/21 Range/Units 07:56 07:56 Glucose 119 H (74-99) mg/dL Urine Appearance Cloudy H (Clear) Urine Protein Trace H (Negative) Ur Leukocyte Esterase Trace H (Negative) Ur Squamous Epith Cells 28 H (0-4) /hpf Urine Mucus Occasional H (None) /hpf Diabetes panel 03/06/21 Range/Units 07:56 Sodium 140 (137-145) mmol/L Potassium 4.1 (3.5-5.1) mmol/L Chloride 107 (98-107) mmol/L Carbon Dioxide 27 (22-30) mmol/L BUN 12 (7-17) mg/dL Creatinine 0.55 (0.52-1.04) mg/dL Glucose 119 H (74-99) mg/dL Calcium 9.3 (8.4-10.2) mg/dL AST 26 (14-36) U/L ALT 34 (4-34) U/L Alkaline Phosphatase 97 (38-126) U/L Total Protein 6.9 (6.3-8.2) g/dL Albumin 4.2 (3.5-5.0) g/dL Calcium panel 03/06/21 Range/Units 07:56 Calcium 9.3 (8.4-10.2) mg/dL Albumin 4.2 (3.5-5.0) g/dL Pituitary panel 03/06/21 Range/Units 07:56 Sodium 140 (137-145) mmol/L Potassium 4.1 (3.5-5.1) mmol/L Chloride 107 (98-107) mmol/L Carbon Dioxide 27 (22-30) mmol/L BUN 12 (7-17) mg/dL Creatinine 0.55 (0.52-1.04) mg/dL Glucose 119 H (74-99) mg/dL Calcium 9.3 (8.4-10.2) mg/dL Adrenal panel 03/06/21 Range/Units 07:56 Sodium 140 (137-145) mmol/L Potassium 4.1 (3.5-5.1) mmol/L Chloride 107 (98-107) mmol/L Carbon Dioxide 27 (22-30) mmol/L BUN 12 (7-17) mg/dL Creatinine 0.55 (0.52-1.04) mg/dL Glucose 119 H (74-99) mg/dL Calcium 9.3 (8.4-10.2) mg/dL Total Bilirubin 0.3 (0.2-1.3) mg/dL AST 26 (14-36) U/L ALT 34 (4-34) U/L Alkaline Phosphatase 97 (38-126) U/L Total Protein 6.9 (6.3-8.2) g/dL Albumin 4.2 (3.5-5.0) g/dL <Buster Elias - Last Filed: 03/06/21 17:33> History of Present Illness As above. Patient with 2-3 day history of right lower quadrant pain. CAT scan reviewed and shows acute appendicitis. Options reviewed. We'll proceed with laparoscopic possible open appendectomy at this time. Risks of bleeding, in fection, abscess, conversion to an open procedure, leak, bladder bowel and ureteral injury reviewed. She understands and wishes to proceed. Past Medical History - Past Family History Sister(s) Family Medical History: Cancer Additional Family Medical History / Comment(s): breast cancer and melanoma Mother Family Medical History: Congestive Heart Failure (CHF), Coronary Artery Disease (CAD), CVA/TIA, Diabetes Mellitus Father Family Medical History: Congestive Heart Failure (CHF) Surgical - Exam Vital Signs Temp Pulse Resp BP Pulse Ox 97.9 F 108 H 18 118/87 98 03/06/21 07:22 03/06/21 07:22 03/06/21 07:22 03/06/21 07:22 03/06/21 07:22 Results - Labs 03/06/21 07:56 03/06/21 07:56 Abnormal Lab Results - Last 24 Hours (Table) 03/06/21 03/06/21 Range/Units 07:56 07:56 Glucose 119 H (74-99) mg/dL Urine Appearance Cloudy H (Clear) Urine Protein Trace H (Negative) Ur Leukocyte Esterase Trace H (Negative) Ur Squamous Epith Cells 28 H (0-4) /hpf Urine Mucus Occasional H (None) /hpf Diabetes panel 03/06/21 Range/Units 07:56 Sodium 140 (137-145) mmol/L Potassium 4.1 (3.5-5.1) mmol/L Chloride 107 (98-107) mmol/L Carbon Dioxide 27 (22-30) mmol/L BUN 12 (7-17) mg/dL Creatinine 0.55 (0.52-1.04) mg/dL Glucose 119 H (74-99) mg/dL Calcium 9.3 (8.4-10.2) mg/dL AST 26 (14-36) U/L ALT 34 (4-34) U/L Alkaline Phosphatase 97 (38-126) U/L Total Protein 6.9 (6.3-8.2) g/dL Albumin 4.2 (3.5-5.0) g/dL Calcium panel 03/06/21 Range/Units 07:56 Calcium 9.3 (8.4-10.2) mg/dL Albumin 4.2 (3.5-5.0) g/dL Pituitary panel 03/06/21 Range/Units 07:56 Sodium 140 (137-145) mmol/L Potassium 4.1 (3.5-5.1) mmol/L Chloride 107 (98-107) mmol/L Carbon Dioxide 27 (22-30) mmol/L BUN 12 (7-17) mg/dL Creatinine 0.55 (0.52-1.04) mg/dL Glucose 119 H (74-99) mg/dL Calcium 9.3 (8.4-10.2) mg/dL Adrenal panel 03/06/21 Range/Units 07:56 Sodium 140 (137-145) mmol/L Potassium 4.1 (3.5-5.1) mmol/L Chloride 107 (98-107) mmol/L Carbon Dioxide 27 (22-30) mmol/L BUN 12 (7-17) mg/dL Creatinine 0.55 (0.52-1.04) mg/dL Glucose 119 H (74-99) mg/dL Calcium 9.3 (8.4-10.2) mg/dL Total Bilirubin 0.3 (0.2-1.3) mg/dL AST 26 (14-36) U/L ALT 34 (4-34) U/L Alkaline Phosphatase 97 (38-126) U/L Total Protein 6.9 (6.3-8.2) g/dL Albumin 4.2 (3.5-5.0) g/dL
[2021-03-06] MEDS ORDERED: IV FLUID CONTINUATION 1,000 ML IV ONE (16:37)
[2021-03-06] MEDS: PIPERACILLIN-TAZOBACTAM 3.375 GM in SODIUM CHLORIDE 0.9% 100 ML IVPB SCH (16:48)
[2021-03-06] MEDS ORDERED: HEPARIN SODIUM,PORCINE/PF 5,000 UNIT/0.5 ML SYRINGE SQ ONE (17:00)
[2021-03-06] MEDS ORDERED: HEPARIN SODIUM,PORCINE 5,000 UNIT/ML 1 ML VIAL SQ ONE (17:31)
[2021-03-06] MEDS ORDERED: PROPOFOL 10 MG/ML 20 ML VIAL IV ONE (17:40)
[2021-03-06] MEDS ORDERED: MIDAZOLAM 2 MG/2 ML VIAL ONE (17:40)
[2021-03-06] MEDS ORDERED: fentaNYL (PF) 50 MCG/ML 2 ML AMP ONE (17:40)
[2021-03-06] MEDS ORDERED: LIDOCAINE 1% INJ 10MG/ML (20 ML MDV) ONE (17:40)
[2021-03-06] MEDS ORDERED: GLYCOPYRROLATE 0.2 MG/ML 2 ML VIAL ONE (17:40)
[2021-03-06] MEDS ORDERED: SUCCINYLCHOLINE CHLORIDE 100 MG/5 ML SYR IV ONE (17:40)
[2021-03-06] MEDS ORDERED: ROCURONIUM 10 MG/ML (5 ML VIAL) IV ONE (17:40)
[2021-03-06] MEDS ORDERED: NEOSTIGMINE 1 MG/ML 10 ML VIAL ONE (17:40)
[2021-03-06] MEDS ORDERED: BUPIVACAINE (PF) 0.25% 30 ML VIAL SQ ONE ×2 (18:04)
[2021-03-06] MEDS ORDERED: HYDROcodone/APAP 5-325MG 1 EACH TAB PO PRN (18:25)
--- NOTE | 2021-03-06 18:28 | P.OP ---
Date of Procedure: 03/06/21 Procedure(s) Performed: PREOPERATIVE DIAGNOSIS: Acute appendicitis POSTOPERATIVE DIAGNOSIS: Same PROCEDURE: Laparoscopic appendectomy SURGEON: Curt EBL: 5 mL ANESTHESIA: General COMPLICATIONS: None OPERATIVE PROCEDURE: The patient was brought and placed on the operating table in the supine position. The patient was placed under general anesthesia. The abdomen was prepped and draped in the usual sterile fashion. A small vertical infraumbilical incision was made. The fascia was retracted anteriorly with Josh forceps. The Veress needle was advanced into the peritoneal cavity. The saline drop test was normal. Insufflation took place to 15 mmHg. A 5 mm trocar was then placed. An additional 5 mm suprapubic trocar was placed under direct visualization as well as a 12 mm left lower quadrant trocar under direct visualization. The appendix was inspected. It was acutely inflamed. The mesoappendix was dissected. The base of the appendix was divided using a linear 45 mm intestinal stapler. The mesentery itself was was divided using the LigaSure. The area was then irrigated. No further purulence or bleeding was seen. The appendix was brought out of the peritoneal cavity through the left lower quadrant trocar site using an Endo Catch bag. The fascia at the 12 mm site was closed using a [id number] 0 Vicryl stitch. The skin at all 3 sites was closed using 4-0 Monocryl sutures. Skin glue was then applied. DISPOSITION: Stable to recovery room
[2021-03-06] MEDS ORDERED: KETOROLAC 15 MG/ML 1 ML VIAL IVP ONE (18:44)
[2021-03-06] MEDS ORDERED: HYDROmorphone 0.5 MG/0.5 ML SYRINGE IVP ONE (19:04)
[2021-03-06] MEDS ORDERED: diphenhydrAMINE 50 MG/ML 1 ML VIAL IVP ONE (19:35)
[2021-03-06] MEDS ORDERED: SODIUM CHLORIDE 0.9% 1,000 ML IV ONE (19:36)
[2021-03-06] MEDS: HEPARIN SODIUM,PORCINE/PF 5,000 UNIT/0.5 ML SYRINGE SQ SCH (23:48)
[2021-03-07] MEDS: HYDROmorphone 0.5 MG/0.5 ML SYRINGE IVP PRN (01:33)
[2021-03-07] MEDS: PIPERACILLIN-TAZOBACTAM 3.375 GM in SODIUM CHLORIDE 0.9% 100 ML IVPB SCH ×2 (01:42→09:37)
[2021-03-07] MEDS: ONDANSETRON 4 MG/2 ML VIAL IVP PRN (04:05)
[2021-03-07] MEDS ORDERED: METOCLOPRAMIDE 5 MG/ML 2 ML VIAL IVP PRN (04:54)
[2021-03-07] MEDS: SODIUM CHLORIDE 0.9% 1,000 ML IV SCH (05:55)
[2021-03-07 09:21] VITALS: BP 112/74; PULSE 102; RESP 18; TEMP 98
[2021-03-07] MEDS ORDERED: traMADol 50 MG TAB PO PRN (09:21)
[2021-03-07] MEDS: HEPARIN SODIUM,PORCINE/PF 5,000 UNIT/0.5 ML SYRINGE SQ SCH (09:38)
[2021-03-07] MEDS ORDERED: KETOROLAC 15 MG/ML 1 ML VIAL IVP SCH (12:00)
--- NOTE | 2021-03-07 13:05 | P.DS ---
<Keyana Barker - Last Filed: 03/07/21 13:02> Providers Expected date of discharge: 03/07/21 Hospital Course: Discharge diagnosis 1. Acute appendicitis status post laparoscopic appendectomy Hospital course This is a 50-year-old female with a known past medical history of hypothyroidism, tachycardia, rheumatoid arthritis, fibromyalgia and osteoarthritis. Past surgical history includes umbilical hernia repair, tubal ligation and removal of ovarian cysts bilaterally. She's also had a cervical fusion and laminectomy of the lumbar spine. Patient presents to the emergency room with complaints of abdominal pain. Patient states pain started 3 days ago on Wednesday around 1:00 in the morning. She states the pain was under her belly button and it was dull and achy. She also had nausea and one episode of diarrhea. Pain then radiated from the umbilicus down into the right lower quadrant. She was rating the pain about a 5 out of 10. The pain was persistent there. She came into the ER for further evaluation and treatment. She had computed tomography scan of the abdomen and pelvis which is positive for early acute appendicitis. No abscess or free air. Patient is status post laparoscopic appendectomy. She did have vomiting around 4 AM this morning. However, she has been able to tolerate breakfast and lunch. Her pain is controlled. She has been up and ambulating. She is afebrile. She is stable for discharge. Please refer to chart for any further details. Physician Paper Mill Supervisor note has been reviewed by physician. Signing provider agrees with the documented findings, assessment, and plan of care. Patient Condition at Discharge: Stable Plan - Discharge Summary Discharge Rx Participant: No New Discharge Prescriptions: New traMADol HCl [Ultram] 50 mg PO TID PRN #9 tab PRN Reason: Pain Continue Nebivolol [Bystolic] 5 mg PO HS Ibuprofen [Motrin Ib] 400 - 800 mg PO Q6H PRN PRN Reason: Pain Etanercept [Enbrel] 50 mg SQ WE Phentermine HCl [Adipex-P] 37.5 mg PO DAILY Ergocalciferol [Vitamin D2 (1250 Mcg = 66612 Iu)] 1,250 mcg PO WE DULoxetine HCL [Cymbalta] 60 mg PO DAILY Discontinued Amoxic-Pot Clav 875-125Mg [Augmentin 875-125] 1 tab PO Q12HR Discharge Medication List Nebivolol [Bystolic] 5 mg PO HS 09/27/19 [History] Etanercept [Enbrel] 50 mg SQ WE 10/21/20 [History] Ibuprofen [Motrin Ib] 400 - 800 mg PO Q6H PRN 10/21/20 [History] DULoxetine HCL [Cymbalta] 60 mg PO DAILY 03/06/21 [History] Ergocalciferol [Vitamin D2 (1250 Mcg = 95575 Iu)] 1,250 mcg PO WE 03/06/21 [History] Phentermine HCl [Adipex-P] 37.5 mg PO DAILY 03/06/21 [History] traMADol HCl [Ultram] 50 mg PO TID PRN #9 tab 03/07/21 [Rx] Follow up Appointment(s)/Referral(s): Buster Elias MD [Medical Doctor] - 03/12/21 3:15 pm Benjamin Darnell DO [Primary Care Provider] - 1-2 days Patient Instructions/Handouts: Laparoscopic Appendectomy (DC) Activity/Diet/Wound Care/Special Instructions: No driving while taking [place] No lifting over 10 pounds You may shower. No soaking or tub baths for 2 weeks Very light activity until you are reevaluated at your follow up appointment with your surgeon Discharge Disposition: HOME SELF-CARE <Buster Elias - Last Filed: 03/07/21 15:39> Providers Date of admission: 03/06/21 09:19 Attending physician: Buster Elias Primary care physician: [place] Hospital Course: As above. Patient doing well today. Tolerating diet. Was nauseated earlier this morning. Patient would like to go home today. Anticipate discharge if pain control.
[2021-03-07 13:39] VITALS: BMI 32.5
== END 2021-03-07 14:15 | disposition home or self-care (01) ==
LOC: EC 07:21 → 6PED 09:19
PROVIDERS: ADMIT Surgery; ATTEND Surgery
DX: K35.80 Unspecified acute appendicitis (principal); M43.16 Spondylolisthesis, lumbar region; N83.202 Unspecified ovarian cyst, left side; H40.9 Unspecified glaucoma; M19.90 Unspecified osteoarthritis, unspecified site; G62.9 Polyneuropathy, unspecified; K76.0 Fatty (change of) liver, not elsewhere classified; E03.9 Hypothyroidism, unspecified; M06.9 Rheumatoid arthritis, unspecified; M79.7 Fibromyalgia; R00.0 Tachycardia, unspecified; Z79.899 Other long term (current) drug therapy; Z88.2 Allergy status to sulfonamides; Z91.040 Latex allergy status; Z98.51 Tubal ligation status; Z98.890 Other specified postprocedural states; Z87.01 Personal history of pneumonia (recurrent); Z98.1 Arthrodesis status; Z87.891 Personal history of nicotine dependence; Z82.49 Family history of ischemic heart disease and other diseases of the circulatory system; Z84.89 Family history of other specified conditions; Z80.3 Family history of malignant neoplasm of breast; Z80.8 Family history of malignant neoplasm of other organs or systems; Z83.3 Family history of diabetes mellitus; Z82.3 Family history of stroke
CPT/HCPCS: 44970; 96361; 96374; 96375; 99285; 36415; 88304; 80053; 83605; 83690; 85025; 81001; 81025; 87040; 87635; 74177; G0378 ×2; J2543 ×2; J2250; J1200; J1644 ×3; J2710; J2765; J2405 ×2; J2001; J3010; J1885 ×2; J0330; J2704; C9113; J1170 ×2; Q9967

== ENCOUNTER → 2021-04-01 | Outpatient (CLI) | payer BC, MEDICARE ==
[2021-04-02 05:33] LABS: African American GFR (CKD) 123.2 (60.0-200.0); Albumin 4.8 g/dL (3.80-4.90); Albumin/Globulin Ratio 2.18 (1.60-3.17); Anion Gap 13.3 mmol/L (4.00-12.00); Calcium 9.5 mg/dL (8.7-10.3); Carbon Dioxide 25.7 mmol/L (21.6-31.8); Globulin 2.2 g/dL (1.6-3.3); Non-African American GFR(CKD) 106.3 (60.0-200.0); Potassium 4.4 mmol/L (3.5-5.5); Total Bilirubin 0.4 mg/dL (0.2-1.2)
== END | disposition home or self-care (01) ==
LOC: LABWHC1 10:21
PROVIDERS: ATTEND Internal Medicine Endocrinology, Diabetes & Metabolism
DX: E55.9 Vitamin D deficiency, unspecified (principal); D35.1 Benign neoplasm of parathyroid gland
CPT/HCPCS: 36415; 80053; 82306; 83970

== ENCOUNTER → 2021-04-08 | Outpatient (CLI) | payer BC, MEDICARE ==
--- NOTE | 2021-04-08 15:36 | US ---
EXAMINATION TYPE: US thyroid st tissue head/neck DATE OF EXAM: 04/08/2021 COMPARISON: NONE CLINICAL HISTORY: D35.1 parathyroid gland. Parathyroid gland GLAND SIZE: Right Lobe: 5.1 x 1.6 x 2.2 cm Overall Parenchyma: homogenous Left Lobe: 4.4 x 1.2 x 1.9 cm Overall Parenchyma: homogeneous Isthmus Thickness: .4 cm NODULES RIGHT: # of nodules measured on right: 0 LEFT: # of nodules measured on left: 0 ISTHMUS: # of nodules measured in the isthmus: 0 Bilateral neck scanned, no evidence of lymphadenopathy. Scanned parathyroid area no obvious abnormalities seen. No nodule seen adjacent to the visualized por tions of the thyroid. IMPRESSION: Thyromegaly with no solid or cystic nodules identified. 2017 ACR TI-RADS LEVEL: TR-RADS 1 - BENIGN: No FNA *Highest TI-RADS level nodule reported
== END | disposition home or self-care (01) ==
LOC: RADUSWWP 14:59
PROVIDERS: ATTEND Internal Medicine Endocrinology, Diabetes & Metabolism
DX: D35.1 Benign neoplasm of parathyroid gland (principal); E01.0 Iodine-deficiency related diffuse (endemic) goiter
CPT/HCPCS: 76536

== ENCOUNTER → 2022-08-17 | Outpatient (CLI) | payer MEDICARE ==
--- NOTE | 2022-08-18 09:07 | XR ---
EXAMINATION TYPE: XR lumbar spine 2 or 3V DATE OF EXAM: 08/17/2022 4:25 PM INDICATION: Patient age:Female; 52 years old; Reason for study: LOW BACK PAIN, UNSPECIFIED M54.50; PHH. COMPARISON: CT abdomen pelvis 03/06/2021 TECHNIQUE: Frontal, lateral , bilateral oblique and coned in L5-S1 lateral views of the spine. FINDINGS: No evidence of any acute osseous pathology. No evidence of loss of vertebral body height i s seen. Vertebral body alignment demonstrates grade 1 anterolisthesis of L3 on L4. This finding is un changed from prior in 2020. Left spondylolysis. No significant degeneration changes throughout the sp ine. Atherosclerosis of the arterial vasculature. IMPRESSION: 1. No acute fracture. 2. Mild multilevel disc degeneration.
== END | disposition home or self-care (01) ==
LOC: RADXRMAIN 15:42
PROVIDERS: ATTEND Family Medicine
DX: M51.36 Other intervertebral disc degeneration, lumbar region (principal)
CPT/HCPCS: 72100

== ENCOUNTER → 2022-09-14 | Outpatient (CLI) | payer MEDICARE ==
--- NOTE | 2022-09-15 09:46 | MR ---
EXAMINATION TYPE: MR lumbar spine wo/w con DATE OF EXAM: 09/14/2022 COMPARISON: 05/22/2020 HISTORY: 52-year-old female M54.42, M54.41, Lower back pain, RLE radiculopathy, hx surgery 2018. Technique: Multiplanar, multisequence images of the lumbar spine were obtained before and after admin istration of 9 mL intravenous Gadavist gadolinium contrast. FINDINGS: No prevertebral or paravertebral soft tissue anomaly seen. Status post laminectomy changes from L3 through L5 levels. Mild multilevel degenerative disc disease with desiccated and bulging discs. Posterior annular fissure noted at L2-L3 and L4-L5. Eccentric towards the left at L3-L4. There is degenerative grade 1 retrolisthesis L2-L3 and L4-L5 similar to slightly more accentuated com pared to prior exam. Conus medullaris is normal. No stenosis is bone marrow replacement. Facet arthropathy mid to lower lumbar spine. At T12-L1, no spinal canal or foraminal stenosis. L1-L2, no spinal canal or foraminal stenosis. At L2-L3, facet arthropathy with bulging disc. Trace grade 1 retrolisthesis and enhancing posterior a nnular fissure. New compared to 05/22/2020, there is a small right paracentral extrusion with subligam entous inferior migration of disc material that has developed, best seen on and sagittal postcontrast image 9. No significant spinal canal stenosis. Changes are within [id number]-ci-hllymift left and mild rig ht neuroforaminal stenosis. At L3-L4, dorsal decompression of the spinal canal. Bilateral facet arthropathy and mild bulging disc . Enhancing annular fissure eccentric towards the left. The disc bulge here contributes to a mild to moderate left neuroforaminal stenosis with annular fissure closely approaching the exiting left L3 ne rve root. Additional mild right neuroforaminal stenosis. No significant spinal canal stenosis. At L4-L5, dorsal decompression of the spinal canal. Facet arthropathy with rate 1 retrolisthesis. No spinal canal stenosis. There may be a 1 cm fragment of extruded disc laterally, just beyond the right neuroforamen, axial image 8. While there is overall mild to moderate bilateral neuroforaminal stenos is, there seems to be some low signal along the exiting right L4 nerve root that shows corresponding postcontrast enhancement, for example, sagittal pre and postcontrast T1 images 13 and axial pre and p ostcontrast images 9. At L5-S1, ligamentum flavum thickening and hypertrophic facet arthropathy. No spinal canal or signifi cant neural foraminal stenosis. No abnormal enhancement within the spinal canal. IMPRESSION: 1. Status post laminectomy change from L3 through L5 levels with dorsal decompression of the spinal c anal. There is background mild degenerative disc disease and mild to moderate facet arthropathy. Dege nerative grade 1 retrolistheses L2-L3 and L4-L5. 2. Findings suggest some enhancing perineural granulation tissue along the exiting right L4 nerve adri t at the L4-L5 level. In addition, there may be a 1 cm fragment of extruded disc laterally, just beyo nd the right L4-L5 neuroforamen, axial image 8. Overall mild to moderate neuroforaminal stenosis here on both sides. 3. Posterior annular fissure is noted at L2-L3, L4-L5, and eccentric towards the left at L3-L4. 4. At L2-L3, there is a new small right paracentral disc extrusion with subligamentous inferior migra tion of disc material. Overall mild to moderate left and mild right neuroforaminal stenosis at this l evel. 5. At L3-L4, there is a mild to moderate left neuroforaminal stenosis with the eccentric annular fiss ure closely approaching the exiting left L3 nerve root.
== END | disposition home or self-care (01) ==
LOC: RADMRIMAIN 14:53
PROVIDERS: ATTEND Physician Assistant
DX: M47.26 Other spondylosis with radiculopathy, lumbar region (principal); M51.16 Intervertebral disc disorders with radiculopathy, lumbar region; M48.061 Spinal stenosis, lumbar region without neurogenic claudication
CPT/HCPCS: 72158; A9585

== ENCOUNTER → 2022-09-28 | Outpatient (CLI) | payer BC, MEDICARE ==
[2022-09-28 09:22] VITALS: BP 146/83; PULSE 113; RESP 18; TEMP 98.4
--- NOTE | 2022-09-28 14:42 | P.PAINPG ---
PQRS Measure Charge Sheet Comment: HISTORY OF PRESENT ILLNESS: 52 yr old female as a referral from [facility] presents today w severe and chronic secondary to for evaluation. Pt states her pain level is currently at /10 in intensity, 4/10 in intensity, constant, localized in the R lumbar spine, dull in character w shooting towards the R buttock and RLE. Pain is provoked as high as 10/10 by walking/ standing for periods of 20 min or more. Pain is alleviated by PT x 5 wks which ended in Dec 2021, heat, ice, meds (Ibu, Flexeril, Tyl #3, Tyl OTC), topicals, sitting and rest. PMH: OA, Pneumonia, Thyroid Disorder, Glaucoma PSH: BL Knee Arthroscopy, Umbilical Hernia Repair, Lumbar Laminectomy, BL Ovarian Cystectomy, Tubal Ligation, Uterine Ablation, L Shoulder surgery x 2 (2016), Cervical fusion (2018), Laparoscopic Appendectomy (2020) SH: Former tobacco user, No ETOH abuse, No illicit drug use FH: Sis- Breast CA/ Melanoma All: See list Meds: See list REVIEW OF ORGAN SYSTEMS: CONSTITUTIONAL: No fevers or chills. No recent weight loss. NEUROLOGICAL: + numbness and tingling along the distal extremities. No seizure disorders or headaches. MUSCULOSKELETAL: + pain PSYCHIATRIC: Denies current depression or suicidal thoughts. Physical Examinations : Constitutional : Cooperative , not in acute distress . Neurologic : Cranial nerve II to XII intact. No focal neurological deficits. Psychiatric : alert & oriented x 3. Matching mood & appropriate affect. Judgment & insight intact. Musculoskeletal : Cervical Spine Motor strength in the deltoid and biceps: Normal right side. Normal Left side Motor strength biceps and the wrist extensors: Normal right side . Normal left side Motor strength in the triceps muscle: Normal right side. Normal left side Deep tendon reflexes: Normal at the biceps. Normal at Brachioradialis. Normal at triceps Vertebral body tenderness to deep palpation over Cervical facet loading test: positive bilaterally Spurling test: positive bilaterally Neck distraction test: positive bilaterally April sign: positive bilaterally Lumbar spine Motor strength lower extremities ,thigh and legs 5/5 Right side , 5/5 Left side Deep tendon reflexes : Normal Knee Jerk. Normal Ankle Jerk Vertebral body tenderness over L4 Lumbar facet Loading Test: positive Right / positive Left Range of motion of the lumbar spine Flexion 30 degrees, extension 10 degrees Straight Leg Raise test: Left/ Right positive at <40 degree Talon test: positive right / positive left. Severe tenderness over the Sacroiliac joint on the Right / Left sides Gaenslen test: positive bilaterally Seated flexion test: positive bilaterally. Sacral spine : Severe tenderness over the Sacroiliac joint: right side / left side Range of motion: Flexion of the lumbar spine <60 degrees Range of motion: Extension of the lumbar spine <20 degrees Gaenslen's Test positive Stevo's Test positive Talon test: positive right side / left side Thigh Thrust Test Sacral Thrust Test Imaging: MRI without contrast of the lumbar spine from 08/17/22 reviewed Assessment/ Plan : Lumbar retrolisthesis, Lumbar DDD Recommendation of R TFESI L4-L5. May need a series, up to 3 within a 6 mo period, for optimal pain relief. Risks, benefits of procedure discussed and patient verbalized understanding. Admits to aspirin or anti- coagulant use or medical history of diabetes. Protocol for discontinuation/ continuation of medications ray procedure discussed. All questions answered. I have spent greater than 30 minutes on patient care today. Dr Sam was available by phone for the evaluation of this patient. The time was used to review the medical records including relevant urine studies and Prescription history (MAPs), review of the available imaging, evaluation and examination of the patient, coordination of care with the medical staff and if applicable referring physicians, as well as creation of the medical record PQRS Narrative: Smoking Status Former smoker Home Medications: Ambulatory Orders Ibuprofen [Motrin Ib] 400 - 800 mg PO Q6H PRN 10/21/20 Ergocalciferol [Vitamin D2 (1250 Mcg = 91550 Iu)] 1,250 mcg PO WE 03/06/21 Cyclobenzaprine [Flexeril] 10 mg PO HS 09/28/22 Controlled Substance Measures - Controlled Substance Measures Is patient prescribed a controlled substance at discharge?: No
== END ==
LOC: PNWHC3 08:38
PROVIDERS: ATTEND Specialist
DX: M43.16 Spondylolisthesis, lumbar region (principal); M51.36 Other intervertebral disc degeneration, lumbar region; Z79.01 Long term (current) use of anticoagulants; E11.9 Type 2 diabetes mellitus without complications; Z87.891 Personal history of nicotine dependence; Z91.040 Latex allergy status; Z88.2 Allergy status to sulfonamides
CPT/HCPCS: 99211

== ENCOUNTER 2022-10-29 07:41 | Day surgery (SDC) | payer BC, MEDICARE ==
[2022-10-27 10:30] VITALS: BMI 31.6
[2022-10-29] MEDS ORDERED: LIDOCAINE 1% (10MG/ML) FOR IV START INTRADERMA PRN (07:58)
[2022-10-29] MEDS ORDERED: LACTATED RINGERS 1,000 ML IV SCH (07:58)
[2022-10-29 08:02] VITALS: RESP 18; TEMP 97
[2022-10-29 08:16] LABS: Glucose,Whole Blood 118 mg/dL (70-110)
[2022-10-29] MEDS ORDERED: MIDAZOLAM 2 MG/2 ML VIAL ONE (08:23)
[2022-10-29] MEDS ORDERED: IOPAMIDOL M200 10 ML VIAL ONE (08:23)
[2022-10-29] MEDS ORDERED: methylPREDNISolone ACETATE 80 MG/ML 1 ML VIAL ONE (08:23)
[2022-10-29] MEDS ORDERED: fentaNYL (PF) 50 MCG/ML 2 ML AMP ONE (08:23)
--- NOTE | 2022-10-29 08:34 | P.PCN ---
Date of Procedure: 10/29/22 Procedure(s) Performed: PREOPERATIVE DIAGNOSIS: 1-Lumbar radiculopathy . 2-lumbar foraminal stenosis 3- lumbar spondylosis with lumbar facet arthropathy POSTOPERATIVE DIAGNOSIS: Same as preoperative diagnoses. PROCEDURE 1. Transforaminal epidural steroid injection under fluoroscopic guidance at right L4-5 level. (Fluoroscopy images stored on file in the radiology Department ) 2. Lumbar epidurogram . ANESTHESIA: Local with 1% lidocaine 3 ml , moderate sedation with intravenous Versed 2 mg and fentanyle 100 micrograms. Sedation start time : 0 825 . Sedation. stop time : 0 831 . EBL: Minimal PROCEDURE INDICATION: The patient with low back pain and radiculopathy symptoms unresponsive to conservative treatment. PROCEDURE DESCRIPTION / TECHNIQUE: The patient was seen and identified in the preoperative area. Risks, benefits, complications, and alternatives were discussed with the patient. The patient agreed to proceed with the procedure and signed the consent. IV was started, and vital signs were stable. Patient was taken to the OR and time out was completed. The patient was placed in the prone position on procedure table and a pillow was placed under the abdomen to reduce lumbar lordosis. The lumbosacral area was prepped and draped in the usual sterile fashion. Critical pause was taken. Vital signs were closely monitored during the procedure. Conscious sedation was used during the procedure to decrease patient s anxiety. Using oblique fluoroscopy, the chin of the `Desmondy dog at L4-5 level was identified, and the skin and deeper tissues just below was localized with 1% lidocaine. Subsequently, a 22-gauge 3.5-inch spinal needle was advanced under a tunneled view fluoroscopic guidance just underneath the chin of the `Desmondy dog at the right L4-5 Under lateral fluoroscopy, the needle was then advanced to the posterior border of the interforaminal space. After negative aspiration of CSF and blood and with no paresthesias, 1 mL Isovue 200 contrast dye was injected excellent epidurogram and outlining of the nerve root Subsequently, 3 mL of block solution containing 80 mg Depo-Medrol and 2 mL of 0.9% normal saline PF was injected. Needle was removed . At the end of the procedure, skin was cleansed, and bandages were applied. COMPLICATIONS:none DISPOSITION / PLANS: The patient was placed in a supine position and transferred to the recovery area in a stable condition for observation. There was no evidence of lower extremity motor or sensory deficit after the procedure. Patient was discharged from the recovery room after meeting discharge criteria. Home discharge instructions were given to the patient by the staff. The patient was reexamined prior to discharge.
[2022-10-29] MEDS ORDERED: ONDANSETRON 4 MG/2 ML VIAL ONE (08:50)
[2022-10-29] MEDS ORDERED: ONDANSETRON 4 MG/2 ML VIAL IVP ONE (08:51)
[2022-10-29] MEDS ORDERED: LACTATED RINGERS 1,000 ML IV ONE (08:52)
[2022-10-29 09:02] VITALS: BP 108/69; PULSE 98
--- NOTE | 2022-10-29 11:24 | FL ---
EXAMINATION TYPE: FL guided pain mgmt statistic DATE OF EXAM: 10/29/2022 FLUOROSCOPY Fluoroscopy time of 3 seconds was used during right-sided lumbar transforaminal epidural steroid inje ction. 1 image/s document/s the procedure.
== END 2022-10-29 09:26 | disposition home or self-care (01) ==
LOC: ORPAIN 07:41
PROVIDERS: ATTEND Specialist
DX: M47.26 Other spondylosis with radiculopathy, lumbar region (principal); M48.061 Spinal stenosis, lumbar region without neurogenic claudication; Z91.040 Latex allergy status
CPT/HCPCS: 81025; 64483; J2250; J1040; J2405; J3010; Q9966

== ENCOUNTER → 2022-11-16 | Outpatient (CLI) | payer BC, MEDICARE ==
[2022-11-16 09:37] VITALS: BP 141/83; PULSE 95; RESP 18; TEMP 97.7
--- NOTE | 2022-11-16 14:59 | P.PAINPG ---
PQRS Measure Charge Sheet Comment: A 52 yr old female with a history of severe and chronic low back pain secondary to lumbar DDD and spondylosis with facet arthropathy without myelopathy presents today for evaluation s/p R TFESI L4-L5. Pt states she experienced 10 % pain relief x 2-3 wks s/p procedure. Pain level is currently at 5 /10 in intensity, constant, localized in lower lumbar spine, dull in character w shooting towards the RLE. Pain is provoked by sitting/ walking/ standing in one position for periods of 20 min or more. Pain is alleviated with PT x 6 wks in Nov 2021, massage therapy monthly x 3 mo which she is currently in, heat, hot showers, heating blanket use, medications (Tyl, Ibu, Flexeril), topicals, repositioning and rest. Interventional pain procedures completed include R TFESI L4-L5 Patient is currently on Tyl, Ibu, Flexeril Patient denies any side effects of the medication(s), denies excessive drowsiness or sleepiness, denies suicidal ideation and reports that the current pain medication is helping to control the pain and improve activities of daily living. Patient denies any motor or sensory deficits. Patient denies any fever or night sweats, denies any change in the bowel movements or urination. Physical Examination: -Constitutional: Cooperative. Not in acute distress . - Neurologic: Cranial nerve II to XII intact. No focal neurological deficits. - Psychatric: Alert & oriented x 3. Matching mood & appropriate affect. Judgment and insight intact. - Musculoskeletal: Cervical spine: Muscle bulk/ tone/ strength in the bilateral upper extremities normal Vertebral body tenderness to palpation over Spurling test positive Distraction test positive Facet loading test positive Thoracic spine Muscle bulk / tone/ strength in the bilateral paraspinal muscles normal Vertebral body tender to palpation over Facet loading test positive Lumbar spine: Motor bulk/ tone/ strength lower extremities , thigh and legs : 5/5 Deep tendon reflexes : Normal Knee Jerk. Normal Ankle Jerk . Vertebral body tenderness to palpation over L5 Lumbar Facet Loading Test positive Straight Leg Raise: positive at 30 degrees right side/ left side Gaenslen's Test positive Sacral spine : Severe tenderness over the Sacroiliac joint: right side / left side Range of motion: Flexion of the lumbar spine <60 degrees Range of motion: Extension of the lumbar spine <20 degrees Gaenslen's Test positive Talon test: positive right side / left side Thigh Thrust Test Sacral Thrust Test Assessment and plan: Chronic low back pain secondary to lumbar degenerative disc disease, spondylosis with facet arthropathy without myelopathy Recommendation of follow up w her orthopedic surgeon. Was told she is a surgical candidate and not to have additional injections at this time. May return to this clinic on an as needed basis. Risks, benefits of procedure discussed and pt verbalized understanding. Denies anticoagulant use or medical history of diabetes. All patient questions answered I have spent less than 30 minutes on patient care today. Dr Sam was available by phone for the evaluation of this patient. The time was used to review the medical records including relevant urine studies and Prescription history (MAPs), review of the available imaging, evaluation and examination of the patient, coordination of care with the medical staff and if applicable referring physicians, as well as creation of the medical record PQRS Narrative: Smoking Status Former smoker Hx Alcohol Use (MH) Yes: RARELY Home Medications: Ambulatory Orders Ibuprofen [Motrin Ib] 400 - 800 mg PO Q6H PRN 10/21/20 Ergocalciferol [Vitamin D2 (1250 Mcg = 91455 Iu)] 1,250 mcg PO WE 03/06/21 Cyclobenzaprine [Flexeril] 10 mg PO HS 09/28/22 Acetaminophen [Tylenol Extra Strength] 1,000 mg PO DAILY 10/27/22 Controlled Substance Measures - Controlled Substance Measures Is patient prescribed a controlled substance at discharge?: No
== END ==
LOC: PNWHC3 09:02
PROVIDERS: ATTEND Specialist
DX: M47.816 Spondylosis without myelopathy or radiculopathy, lumbar region (principal); G89.29 Other chronic pain; M51.36 Other intervertebral disc degeneration, lumbar region; Z87.891 Personal history of nicotine dependence; Z91.040 Latex allergy status; Z88.2 Allergy status to sulfonamides
CPT/HCPCS: 99211

== ENCOUNTER → 2023-07-01 | Outpatient (CLI) | payer BC, MEDICARE ==
--- NOTE | 2023-07-01 14:53 | P.PAINPG ---
PQRS Measure Charge Sheet Comment: A 52 yr old female with a history of severe and chronic low back pain secondary to lumbar DDD and spondylosis with facet arthropathy without myelopathy presents today for evaluation . Pain level is currently at 5 /10 in intensity, constant, localized in lower lumbar spine, dull in character w shooting towards the RLE. Pain is provoked by sitting/ walking/ standing in one position for periods of 20 min or more. Pain is alleviated with PT x 6 wks in Nov 2021, massage therapy monthly x 2 mo which she is currently in, heat, hot showers, heating blanket use, medications (Tyl, Ibu, Flexeril), topicals, repositioning and rest. Oswestry axial pain score of 24. Interventional pain procedures completed include R TFESI L4-L5 x1 Patient is currently on Tyl, Ibu, Flexeril Patient denies any side effects of the medication(s), denies excessive drowsiness or sleepiness, denies suicidal ideation and reports that the current pain medication is helping to control the pain and improve activities of daily living. Patient denies any motor or sensory deficits. Patient denies any fever or night sweats, denies any change in the bowel movements or urination. Physical Examination: -Constitutional: Cooperative. Not in acute distress . - Neurologic: Cranial nerve II to XII intact. No focal neurological deficits. - Psychatric: Alert & oriented x 3. Matching mood & appropriate affect. Judgment and insight intact. - Musculoskeletal: Cervical spine: Muscle bulk/ tone/ strength in the bilateral upper extremities normal Vertebral body tenderness to palpation over Spurling test positive Distraction test positive Facet loading test positive Thoracic spine Muscle bulk / tone/ strength in the bilateral paraspinal muscles normal Vertebral body tender to palpation over Facet loading test positive Lumbar spine: Motor bulk/ tone/ strength lower extremities , thigh and legs : 5/5 Deep tendon reflexes : Normal Knee Jerk. Normal Ankle Jerk . Vertebral body tenderness to palpation over L3 Lumbar Facet Loading Test positive Straight Leg Raise: positive at 30 degrees right side/ left side Gaenslen's Test positive Sacral spine : Severe tenderness over the Sacroiliac joint: right side / left side Range of motion: Flexion of the lumbar spine <60 degrees Range of motion: Extension of the lumbar spine <20 degrees Gaenslen's Test positive Talon test: positive right side / left side Thigh Thrust Test Sacral Thrust Test Assessment and plan: Chronic low back pain secondary to lumbar degenerative disc disease, spondylosis with facet arthropathy without myelopathy Recommendation of R TFESI L3-L4 #1. May need a series of injections for optimal pain relief. Risks, benefits of procedure discussed and pt verbalized understanding. Denies anticoagulant use or medical history of diabetes. Protocol for discontinuation/ continuation of medications surrounding procedure discussed. All patient questions answered I have spent less than 30 minutes on patient care today. Dr Sam was available by phone for the evaluation of this patient. The time was used to review the medical records including relevant urine studies and Prescription history (MAPs), review of the available imaging, evaluation and examination of the patient, coordination of care with the medical staff and if applicable referring physicians, as well as creation of the medical record PQRS Narrative: Smoking Status Former smoker Hx Alcohol Use (MH) Yes: RARELY Home Medications: Ambulatory Orders Ibuprofen [Motrin Ib] 400 - 800 mg PO Q6H PRN 10/21/20 Ergocalciferol [Vitamin D2 (1250 Mcg = 59438 Iu)] 1,250 mcg PO WE 03/06/21 Cyclobenzaprine [Flexeril] 10 mg PO HS 09/28/22 Acetaminophen [Tylenol Extra Strength] 1,000 mg PO DAILY 10/27/22 Controlled Substance Measures - Controlled Substance Measures Is patient prescribed a controlled substance at discharge?: No
[2023-07-01 15:01] VITALS: BP 130/80; PULSE 106; RESP 16; TEMP 98.2
== END ==
LOC: PNWHC3 14:05
PROVIDERS: ATTEND Specialist
DX: M51.16 Intervertebral disc disorders with radiculopathy, lumbar region (principal); M47.26 Other spondylosis with radiculopathy, lumbar region; G89.29 Other chronic pain; Z87.891 Personal history of nicotine dependence; Z91.040 Latex allergy status; Z88.2 Allergy status to sulfonamides; Z98.890 Other specified postprocedural states
CPT/HCPCS: 99211

== ENCOUNTER → 2024-01-24 | Outpatient (CLI) | payer BC, MEDICARE ==
--- NOTE | 2024-01-24 21:55 | XR ---
EXAMINATION TYPE: XR wrist complete LT DATE OF EXAM: 01/24/2024 COMPARISON: None HISTORY: Rheumatoid nodule radial styloid TECHNIQUE: 4 view left wrist FINDINGS: No acute fractures or dislocations are evident. Joint spaces are preserved. No soft tissue abnormality is identified. Scapholunate space is preserved Follow up exams can be performed 7-10 days from acute trauma for continued pain. Impression bone scan can be performed for continued pain at the anatomic snuff box. IMPRESSION: 1. No acute osseous abnormality 4. Left wrist
== END | disposition home or self-care (01) ==
LOC: RADXRMAIN 10:20
PROVIDERS: ATTEND Family Medicine
DX: M06.332 Rheumatoid nodule, left wrist (principal)

== ENCOUNTER → 2024-11-02 | Outpatient (CLI) | payer BC, MEDICARE ==
--- NOTE | 2024-11-02 12:19 | XR ---
EXAMINATION TYPE: XR thoracic spine complete, 3 views DATE OF EXAM: 11/02/2024 11:29 AM COMPARISON: None CLINICAL INDICATION: Female, 54 years old with history of M54.9 TSPIN PAIN, , FINDINGS: ACDF hardware. 12 rib-bearing thoracic vertebral bodies. All pedicles are visualized. There is mild d egenerative disc disease lower third thoracic spine. Vertebral body heights are preserved and alignme nt is maintained. IMPRESSION: Mild degenerative disc disease within the lower third thoracic spine. No vertebral compression collap se or malalignment. Previous ACDF. [facility], , 11/02/2024 12:17 PM
== END | disposition home or self-care (01) ==
LOC: RADXRMAIN 11:06
PROVIDERS: ATTEND Family Medicine
DX: M51.34 Other intervertebral disc degeneration, thoracic region (principal)
CPT/HCPCS: 72072